=== PATIENT | female | born 1945 | race Caucasian/White ===

== ENCOUNTER 2018-02-14 00:19 | Inpatient (IN) | payer MEDICARE, OTHER ==
[2018-02-14] MEDS ORDERED: DIPH/PERTUSS(ACELL)/TETANUS VAC/PF 0.5 ML SYR (>=10YO) IM ONE (00:36)
[2018-02-14] MEDS ORDERED: CEFAZOLIN 2 GM/D5W RTU 2 GM/50 ML RTUPB IV ONE (00:36)
[2018-02-14] MEDS ORDERED: GENTAMICIN SULFATE INJ 80 MG/2 ML VIAL IV ONE (00:36)
[2018-02-14] MEDS ORDERED: ONDANSETRON HCL INJ/PF 4 MG/2 ML SDV IV ONE (00:39)
--- NOTE | 2018-02-14 01:41 | ER Document Report ---
ED General - General Chief Complaint: Ankle Injury Stated Complaint: RIGHT ANKLE INJURY Time Seen by Provider: 02/14/18 00:26 Notes: Patient is a 72-year-old female with a past medical history significant for COPD on nocturnal O2 presents to the emergency department after syncopal episode earlier this evening with a right ankle injury. Patient states that she was outside her son's house speaking to her neighbor when she felt lightheaded and passed out. She denies any chest pain. She states that she intermittently has shortness of breath and cough due to her COPD. Does have wounds on the medial aspect of the right ankle. She states that she has equal sensation in both toes and is able to wiggle her toes. She states that her ankle hurts with any movement. Unaware of tetanus status Is here from out of town lives in [place] primarily - Related Data Allergies/Adverse Reactions: morphine Allergy (Verified 02/14/18 00:57) Hives Past Medical History - Social History Smoking Status: Current Every Day Smoker Family History: Reviewed & Not Pertinent Patient has suicidal ideation: No Patient has homicidal ideation: No Renal/ Medical History: Denies: Hx Peritoneal Dialysis Review of Systems - Review of Systems Constitutional: No symptoms reported. denies: Chills, Fever EENT: No symptoms reported. denies: Blurred vision, Double vision, Vertigo Cardiovascular: Lightheaded. denies: Chest pain, Palpitations, Heart racing Respiratory: See HPI Gastrointestinal: No symptoms reported Genitourinary: No symptoms reported Musculoskeletal: See HPI Neurological/Psychological: See HPI -: Yes All other systems reviewed and negative Physical Exam - Vital signs Vitals: Temp Pulse Resp BP Pulse Ox 97.6 F 81 18 139/66 H 88 L 02/14/18 00:28 02/14/18 00:28 02/14/18 00:28 02/14/18 00:28 02/14/18 00:28 - Notes Notes: PHYSICAL EXAM GENERAL: Alert, interacts well. HEAD: Normocephalic, atraumatic. EYES: Pupils equal, round, and reactive to light. Extraocular movements intact. ENT: Oral mucosa moist, tongue midline. NECK: Full range of motion. Supple. Trachea midline. LUNGS: Bilateral wheezes without rales, or rhonchi. No respiratory distress. HEART: Regular rate and rhythm. No murmurs, gallops, or rubs. ABDOMEN: Soft, nondistended, nontender. No guarding, rebound, or rigidity.. Bowel sounds present in all 4 quadrants. EXTREMITIES: Moves all 4 extremities spontaneously. No edema, radial and dorsalis pedis pulses 2/4 bilaterally. No cyanosis. NEUROLOGICAL: Alert and oriented x4. Normal speech. Face symmetric. Tongue protrudes midline. Extraocular motions intact. Pupils are 2 mm and equally reactive. Normal speech. 5 out of 5 strength in both the distal and proximal upper and left lower extremity. Sensation is grossly intact throughout. Finger to nose testing normal. Pronator drift normal. PSYCH: Normal affect, normal mood. SKIN: Warm, dry, normal turgor. Open laceration of the medial ankle with fat protruding without active bleeding Course - Re-evaluation Re-evalutation: 02/14/18 01:00 Patient is a 72-year-old female is hemodynamically stable, no acute distress afebrile. Syncopal event without any evidence of cardiac arrhythmia likely related to hypoxia given her initial presenting saturations 87% on room air. Improved quickly was placed on 2 L nasal cannula. Evidence of type III open fracture of the right ankle with x-ray evidence of talar dislocation of the tibia with fracture of the fibula. Tetanus status updated and patient initiated on antibiotics. Patient declined pain medication on multiple accounts. Dr. Vanegas consulted for emergent evaluation and possible direct OR. 02/14/18 01:35 Dr. Vanegas at the bedside to evaluate the injury and imaging and recommending emergent OR status. Troponin negative. Consent obtained and patient agrees with plan. - Vital Signs Vital signs: Temp Pulse Resp BP Pulse Ox 94.7 F L 78 16 127/51 H 96 02/14/18 07:00 02/14/18 07:00 02/14/18 07:00 02/14/18 07:00 02/14/18 07:00 - Laboratory Result Diagrams: 02/14/18 01:20 02/14/18 01:20 Laboratory results interpreted by me: 02/14/18 02/14/18 01:20 01:20 WBC 12.0 H RBC 6.46 H Hgb 16.7 H Hct 50.9 H MCV 79 L MCH 25.8 L RDW 19.1 H Seg Neutrophils % 82.8 H Lymphocytes % 7.1 L Absolute Neutrophils 9.9 H Sodium 133.4 L Chloride 94 L Carbon Dioxide 34 H Glucose 125 H - Diagnostic Test Radiology reviewed: Image reviewed, Reports reviewed - EKG Interpretation by Me EKG shows normal: Sinus rhythm Rate: Normal Rhythm: NSR When compared to previous EKG there are: No significant change Discharge - Discharge Clinical Impression: Syncope and collapse Open ankle fracture Qualifiers: Encounter type: initial encounter Open fracture type: open type III Laterality : right Qualified Code(s): S82.891C - Other fracture of right lower leg, initial encounter for open fracture type IIIA, IIIB, or IIIC Condition: Stable Disposition: ADMITTED INPATIENT Admitting Provider: [facility]
[2018-02-14 01:48] LABS: ABSOLUTE EOSINOPHILS # (AUTO) 0.1 10^3/uL (0.0-0.6); ABSOLUTE LYMPHOCYTES (AUTO) 0.9 10^3/uL (0.5-4.7); ABSOLUTE MONOCYTES (AUTO) 1.1 10^3/uL (0.1-1.4); ABSOLUTE NEUT (AUTO) 9.9 10^3/uL (1.7-8.2); BASOPHILS % (AUTO) 0.2 % (0-2); EOSINOPHILS % (AUTO) 0.4 % (0-6); HEMATOCRIT 50.9 % (36.0-47.0); HEMOGLOBIN 16.7 g/dL (12.0-15.5); LYMPHOCYTES % (AUTO) 7.1 % (13-45); MEAN CORPUSCULAR HEMOGLOBIN 25.8 pg (27.0-33.4); MEAN CORPUSCULAR HGB CONC 32.8 g/dL (32.0-36.0); MEAN CORPUSCULAR VOLUME 79 fl (80-97); MONOCYTES % (AUTO) 9.5 % (3-13); PLATELET COUNT 156 10^3/uL (150-450); RED BLOOD COUNT 6.46 10^6/uL (3.72-5.28); RED CELL DISTRIBUTION WIDTH 19.1 % (11.5-14.0); SEGMENTED NEUTROPHILS % (AUTO) 82.8 % (42-78); TOTAL CELLS COUNTED % (AUTO) 100 %
[2018-02-14] MEDS ORDERED: ALBUTEROL SULFATE 0.083% NEB 2.5 MG/3 ML AMPUL NEB ONE (01:51)
--- NOTE | 2018-02-14 02:11 | RADIOLOGY REPORT (SQ) ---
EXAM DESCRIPTION: ANKLE RIGHT COMPLETE CLINICAL HISTORY: 72 years, Female, fall with injury COMPARISON: None. NUMBER OF VIEWS: 3 LIMITATIONS: None. FINDINGS: Comminuted fracture dislocation of the right ankle includes complete oblique comminuted fracture of the distal diaphysis of the right fibula, and greater than 80% lateral subluxation of the talotibial joint. Moderate calcaneal enthesophytes. IMPRESSION: Fracture dislocation of the right ankle.
--- NOTE | 2018-02-14 02:13 | RADIOLOGY REPORT (SQ) ---
EXAM DESCRIPTION: CHEST SINGLE VIEW CLINICAL HISTORY: 72 years Female, chest burning COMPARISON: None. NUMBER OF VIEWS/TECHNIQUE: 1/AP LIMITATIONS: None. FINDINGS: Prominent interstitium. Normal cardiac silhouette. Intact bony thorax. IMPRESSION: No acute cardiopulmonary findings.
[2018-02-14 02:17] LABS: ALANINE AMINOTRANSFERASE 22 U/L (9-52); ALKALINE PHOSPHATASE 61 U/L (38-126); ANION GAP 5 (5-19); ASPARTATE AMINO TRANSFERASE 16 U/L (14-36); BILIRUBIN,DIRECT 0.3 mg/dL (0.0-0.4); BILIRUBIN,TOTAL 0.3 mg/dL (0.2-1.3); BLOOD UREA NITROGEN 9 mg/dL (7-20); CARBON DIOXIDE 34 mmol/L (22-30); CHLORIDE 94 mmol/L (98-107); CREATINE KINASE 50 U/L (30-135); GLUCOSE 125 mg/dL (75-110); POTASSIUM 4.6 mmol/L (3.6-5.0); SODIUM 133.4 mmol/L (137-145); TOTAL PROTEIN 6.7 g/dL (6.3-8.2)
[2018-02-14] MEDS ORDERED: HYDROMORPHONE HCL INJ/PF 2 MG/ML AMPULE IV ONE (02:17)
[2018-02-14] MEDS ORDERED: FENTANYL CITRATE INJ/PF 100 MCG/2 ML AMPUL IV ONE (02:20)
[2018-02-14] MEDS: RINGERS SOLUTION,LACTATED 1,000 ML IV PRN ×2 (02:27→20:52)
--- NOTE | 2018-02-14 02:35 | PDOC H&P ---
History of Present Illness Patient complains of: Right Ankle Injury History of Present Illness: RACHEL SALES is a 72 year old female who is from out of town and was visiting. According to the patient she has long-standing history of COPD and with standing and ultimately became lightheaded, fell and blacked out. Patient was brought to the emergency room via EMS was found to have open fracture dislocation of her ankle. Patient denies gross contamination to the wound and was originally wearing a sock. Does have numbness and tingling along the toes. States pain is worse with any motion. She has received antibiotics in the emergency room. Past Medical History Cardiac Medical History: Reports: Hyperlipidema Pulmonary Medical History: Reports: Chronic Obstructive Pulmonary Disease (COPD) Past Surgical History Past Surgical History: Reports: Section, Cholecystectomy, Herniorrhaphy , Hysterectomy Social History Smoking Status: Current Every Day Smoker Family History Parental Family History Reviewed: No Children Family History Reviewed: No Sibling(s) Family History Reviewed.: No Medication/Allergy Allergies/Adverse Reactions: morphine Allergy (Verified 02/14/18 00:57) Hives Review of Systems Constitutional: ABSENT: chills, fever(s), headache(s), weight gain, weight loss Eyes: ABSENT: visual disturbances Ears: ABSENT: hearing changes Cardiovascular: ABSENT: chest pain, dyspnea on exertion, edema, orthropnea, palpitations Respiratory: PRESENT: dyspnea. ABSENT: cough, hemoptysis Gastrointestinal: ABSENT: abdominal pain, constipation, diarrhea, hematemesis, hematochezia, nausea, vomiting Genitourinary: ABSENT: dysuria, hematuria Musculoskeletal: PRESENT: as per HPI Integumentary: PRESENT: as per HPI, wounds. ABSENT: rash Neurological: ABSENT: abnormal gait, abnormal speech, confusion, dizziness, focal weakness, syncope Psychiatric: ABSENT: anxiety, depression, homidical ideation, suicidal ideation Endocrine: ABSENT: cold intolerance, heat intolerance, menstrual abnormalities, polydipsia, polyuria Hematologic/Lymphatic: ABSENT: easy bleeding, easy bruising, lymphadenopathy Physical Exam Vital Signs: Temp Pulse Resp BP Pulse Ox 97.6 F 81 19 139/66 H 95 02/14/18 00:28 02/14/18 00:28 02/14/18 01:08 02/14/18 00:28 02/14/18 01:30 General appearance: PRESENT: no acute distress, cooperative, well-developed, well-nourished Head exam: PRESENT: atraumatic, normocephalic Eye exam: PRESENT: conjunctiva pink, EOMI, PERRLA. ABSENT: scleral icterus Ear exam: PRESENT: normal external ear exam Mouth exam: PRESENT: moist, tongue midline Neck exam: PRESENT: full ROM. ABSENT: carotid bruit, JVD, lymphadenopathy, thyromegaly Respiratory exam: PRESENT: other - Patient currently on O2. Cardiovascular exam: PRESENT: RRR. ABSENT: diastolic murmur, rubs, systolic murmur Pulses: PRESENT: other - Palpable but weak dorsalis pedis pulse on the right Vascular exam: PRESENT: normal capillary refill GI/Abdominal exam: PRESENT: normal bowel sounds, soft. ABSENT: distended, guarding, mass, organolmegaly, rebound, tenderness Rectal exam: PRESENT: deferred Musculoskeletal exam: PRESENT: other - Right ankle: 10 cm x 3 cm open wound medially with exposed tibia. No evidence of gross contamination. Intact flexion extension of the toes. Dorsalis pedis pulse 1+ and palpable. Cap refill approximately 4 seconds. Altered sensation on the dorsum of the foot. Neurological exam: PRESENT: alert, awake, oriented to person, oriented to place , oriented to time, oriented to situation, CN II-XII grossly intact. ABSENT: motor sensory deficit Psychiatric exam: PRESENT: appropriate affect, normal mood. ABSENT: homicidal ideation, suicidal ideation Skin exam: PRESENT: dry, intact, warm. ABSENT: cyanosis, rash Results Status: Image reviewed by me - I have reviewed patient's radiographs which demonstrate right ankle fracture dislocation with oblique fracture of the distal fibula with involvement of the tibial plafond Assessment & Plan - Diagnosis (1) Open right ankle fracture Qualifiers: Encounter type: initial encounter Open fracture type: open type III Qualified Code(s): S82.891C - Other fracture of right lower leg, initial encounter for open fracture type IIIA, IIIB, or IIIC Is this a current diagnosis for this admission?: Yes Plan: Patient sustained a high-grade fracture dislocation of her right ankle. Given the significant soft tissue compromise and open nature of the fracture I have recommended emergent operative intervention. I have discussed with the patient outcomes, prognosis and expectations given the severity of patient's injury amputation remains a possibility in the future. At this point however we will proceed with operative intervention which includes irrigation and debridement of the right ankle with placement of external fixator. Patient understands risks and benefits of the surgical procedure including anesthesia risks but given the urgency of the situation we will proceed with operative intervention this evening. Other risks including neurovascular risk, infection, postoperative pain, postoperative stiffness, posttraumatic arthritis patient verbalized understanding consented for the procedure. We also discussed the negative effects of smoking/tobacco on wound healing which would increase the patient's risk of nonunion, amputation also discussed negative effects on overall health.
[2018-02-14] MEDS ORDERED: ONDANSETRON HCL INJ/PF 4 MG/2 ML SDV ONE ×2 (02:39→04:27)
[2018-02-14] MEDS ORDERED: EPHEDRINE SULFATE INJ 50 MG/1 ML AMPULE ONE (02:39)
[2018-02-14] MEDS ORDERED: FENTANYL CITRATE INJ/PF 100 MCG/2 ML AMPUL ONE ×2 (02:39)
[2018-02-14] MEDS ORDERED: MIDAZOLAM 2 MG/2 ML INJ ONE (02:40)
[2018-02-14] MEDS ORDERED: PROPOFOL INJ 200 MG/20 ML VIAL IV ONE (02:40)
[2018-02-14 03:06] LABS: TROPONIN I < 0.012 ng/mL
[2018-02-14] MEDS ORDERED: ONDANSETRON HCL INJ/PF 4 MG/2 ML SDV IV PRN (03:18)
[2018-02-14] MEDS ORDERED: DIPHENHYDRAMINE HCL 50 MG/ML VIAL IV PRN (03:18)
[2018-02-14] MEDS ORDERED: FENTANYL CITRATE INJ/PF 100 MCG/2 ML AMPUL IV PRN ×3 (03:18)
--- NOTE | 2018-02-14 04:44 | Operative Report ---
Operative Report DATE OF SURGERY: 02/14/18 PREOPERATIVE DIAGNOSIS: Grade III open right ankle/lateral malleolus fracture dislocation POSTOPERATIVE DIAGNOSIS: Grade III fracture dislocation right ankle OPERATION: Irrigation and debridement right ankle open fracture dislocation. Placement of external fixator right ankle open fracture dislocation SURGEON: ANJU MARTINS ANESTHESIA: GA COMPLICATIONS: None ESTIMATED BLOOD LOSS: Minimal INTRAOPERATIVE FINDINGS: 8 cm open medial wound with exposed bone no gross contamination PROCEDURE: Indication for above procedure: 72-year-old female who sustained a right open fracture dislocation of her ankle. Patient was subsequently seen and evaluated in emergency room given the severity of her open wound decision was made to proceed with operative intervention. Risks and benefits were explained to the patient who verbalized understanding consented for the procedure. Procedure In Detail: Patient was seen and evaluated in the preoperative holding area. The right lower extremity was initialized and marked. Patient received 2g of Ancef IV and gentamicin for bacterial prophylaxis in the emergency room. Patient was taken back to the operative room where transferred to the operative table and placed under general anesthesia. Once they were adequately anesthetized a nonsterile tourniquet was placed on the lower extremity. A surgical team debriefing was performed ensuring all instrumentation was available, the surgical procedure was discussed with possible concerns reviewed. The lower r extremity was prepped with Betadine and draped in a sterile fashion. A timeout was done identifying correct patient, procedure and extremity everyone in attendance agree with this and verbalized no concerns. The extremity was elevated and the tourniquet was inflated to 300 mmHg. Exploration of the patient's 8 cm wound demonstrated no evidence of gross contamination there was disruption of the deltoid ligament with a small avulsion fracture. Any nonviable tissue including bone and skin was excised from the open fracture. The wound was then copiously irrigated with 3 L of normal saline. Once irrigation was complete the ankle was successfully reduced back to its near anatomic position. I then proceeded with placement of the external fixator. Under C arm fluoroscopy a small stab incision was made at the assisted point between the medial malleolus and posterior calcaneus and the Steinmann pin for the Dhillon external fixator was placed. C-arm was utilized to confirm adequate placement of the pin within the posterior calcaneus. Once this was confirmed I turned my attention to placement of 2 proximal pins within the tibia. A stab incision was made blunt dissection performed in the anterior medial aspect of the tibia was exposed with the use of a guide it was initially predrilled and 2 Steinmann pins were placed. C-arm fluoroscopy was obtained confirming appropriate placement of the pins with bicortical fixation on AP and lateral projection. Under C-arm fluoroscopy gentle traction was performed successfully maintaining reduction of the tibial plafond it is near anatomic position. There was no evidence of subluxation. The clamps were then tightly secured. There is no evidence of medial wound necrosis thus this was loosely closed with interrupted 3-0 nylon suture. Pin sites were dressed with Xeroform and Kerlix. A kickstand was placed to avoid posterior heel breakdown/necrosis. Tourniquet was then deflated. Dorsalis pedis pulse was dopplered and palpable. Patient had good peripheral perfusion with cap refill less than 2 seconds. Sponge counts, instrument counts, needle counts counts were correct. Patient was then awoken from anesthesia. Transferred from the operating room table to the operating room stretcher. There was no intraoperative complications patient tolerated procedure well stable to PACU. Postoperative plan: Patient will maintain nonweightbearing on her right lower extremity. Will begin pin care in 48 hours. Will be continued on Ancef IV for 72 hours. Patient will be started on Xarelto for DVT prophylaxis. Anticipate return to the operating room within 48-72 hours for definitive fixation of the lateral malleolus.
[2018-02-14] MEDS ORDERED: CEFAZOLIN 2 GM/D5W RTU 2 GM/50 ML RTUPB IV SCH (06:00)
--- NOTE | 2018-02-14 07:46 | RADIOLOGY REPORT (SQ) ---
EXAM DESCRIPTION: NO CHG FLUORO; ANKLE RIGHT AP/LATERAL COMPLETED DATE/TIME: 02/14/2018 4:38 am REASON FOR STUDY: EXTERNAL FIXATION RT ANKLE COMPARISON: None. FLUOROSCOPY TIME: 1.2 minutes 5 images saved to PACS. TECHNIQUE: Intra-operative images acquired during surgical procedure to evaluate progress. NUMBER OF IMAGES: None LIMITATIONS: None. FINDINGS: Intraoperative fixation of ankle fracture dislocation. Limited imaging presumably for ext ernal fixator. IMPRESSION: IMAGE(S) OBTAINED DURING PROCEDURE. COMMENT: Quality ID 145: Final reports for procedures using fluoroscopy that document radiation exp osure indices, or exposure time and number of fluorographic images (if radiation exposure indices are not available) Please consult full operative report of the attending physician for description of the procedure. TECHNICAL DOCUMENTATION: JOB ID: [id number] [employer]- All Rights Reserved Reading location - IP/workstation name: [email or web address]
--- NOTE | 2018-02-14 07:46 | RADIOLOGY REPORT (SQ) ---
EXAM DESCRIPTION: NO CHG FLUORO; ANKLE RIGHT AP/LATERAL COMPLETED DATE/TIME: 02/14/2018 4:38 am REASON FOR STUDY: EXTERNAL FIXATION RT ANKLE COMPARISON: None. FLUOROSCOPY TIME: 1.2 minutes 5 images saved to PACS. TECHNIQUE: Intra-operative images acquired during surgical procedure to evaluate progress. NUMBER OF IMAGES: None LIMITATIONS: None. FINDINGS: Intraoperative fixation of ankle fracture dislocation. Limited imaging presumably for ext ernal fixator. IMPRESSION: IMAGE(S) OBTAINED DURING PROCEDURE. COMMENT: Quality ID [id number]: Final reports for procedures using fluoroscopy that document radiation exp osure indices, or exposure time and number of fluorographic images (if radiation exposure indices are not available) Please consult full operative report of the attending physician for description of the procedure. TECHNICAL DOCUMENTATION: JOB ID: [id number] [employer]- All Rights Reserved Reading location - IP/workstation name: [email or web address]
[2018-02-14] MEDS: FENTANYL CITRATE INJ/PF 100 MCG/2 ML AMPUL IV PRN ×3 (08:05→20:48)
[2018-02-14] MEDS: CEFAZOLIN 2 GM/D5W RTU 2 GM/50 ML RTUPB IV SCH ×3 (09:28→20:49)
--- NOTE | 2018-02-14 09:34 | PDOC PROGRESS REPORT ---
Subjective Progress Note for:: 02/14/18 Subjective:: Patient seen and evaluated this morning. States pain is controlled. Therapy saw her today after which she began having bleeding from the wound. Denies chest pain shortness of breath. Reason For Visit: RIGHT ANKLE OPEN FRACTURE, DISLOCATION Physical Exam Vital Signs: Temp Pulse Resp BP Pulse Ox 98.2 F 90 18 118/48 L 91 L 02/14/18 09:00 02/14/18 09:00 02/14/18 09:00 02/14/18 09:00 02/14/18 09:00 Intake & Output 02/13/18 02/14/18 02/15/18 06:59 06:59 06:59 Intake Total 1150 Output Total 5 Balance 1145 Weight 68.039 kg Musculoskeletal exam: PRESENT: other - Right lower extremity: External fixator intact. Bloody drainage from the medial wound. Cap refill less than 2 seconds. Dorsalis pedis pulse 2+. Intact flexion/extension of the toes. Results Laboratory Results: 02/14/18 06:36 Troponin I < 0.012 Impressions: Fluoroscopy 02/14/18 00:00 IMPRESSION: IMAGE(S) OBTAINED DURING PROCEDURE. Ankle X-Ray 02/14/18 00:21 IMPRESSION: Fracture dislocation of the right ankle. Chest X-Ray 02/14/18 00:35 IMPRESSION: No acute cardiopulmonary findings. Assessment & Plan - Diagnosis (1) Open right ankle fracture Qualifiers: Encounter type: initial encounter Open fracture type: open type III Qualified Code(s): S82.891C - Other fracture of right lower leg, initial encounter for open fracture type IIIA, IIIB, or IIIC Is this a current diagnosis for this admission?: Yes Plan: Status post external fixation right ankle open fracture dislocation #1 nonweightbearing right lower extremity continue aggressive elevation #2 pain control #3 Ancef IV for bacterial prophylaxis. #4 patient will require repeat operative intervention for definitive fixation of her distal fibula fracture if swelling permits within the next 48-72 hours.
[2018-02-14 10:13] LABS: ABSOLUTE BASOPHILS # (AUTO) 0.1 10^3/uL (0.0-0.2); ABSOLUTE MONOCYTES (AUTO) 1.6 10^3/uL (0.1-1.4); ABSOLUTE NEUT (AUTO) 13.7 10^3/uL (1.7-8.2); BASOPHILS % (AUTO) 0.6 % (0-2); EOSINOPHILS % (AUTO) 0.1 % (0-6); LYMPHOCYTES % (AUTO) 6.3 % (13-45); MEAN CORPUSCULAR HEMOGLOBIN 25.5 pg (27.0-33.4); MEAN CORPUSCULAR HGB CONC 32.2 g/dL (32.0-36.0); MEAN CORPUSCULAR VOLUME 79 fl (80-97); MONOCYTES % (AUTO) 9.5 % (3-13); PLATELET COUNT 146 10^3/uL (150-450); RED BLOOD COUNT 5.69 10^6/uL (3.72-5.28); RED CELL DISTRIBUTION WIDTH 19.1 % (11.5-14.0); SEGMENTED NEUTROPHILS % (AUTO) 83.5 % (42-78); TOTAL CELLS COUNTED % (AUTO) 100 %; WHITE BLOOD COUNT 16.4 10^3/uL (4.0-10.5)
[2018-02-14 10:14] LABS: HEMOGLOBIN 14.5 g/dL (12.0-15.5)
[2018-02-14] MEDS: OXYCODONE-ACETAMINOPHEN 5-325 MG TABLET PO PRN ×2 (10:20→17:16)
[2018-02-14 10:28] LABS: ALANINE AMINOTRANSFERASE 19 U/L (9-52); ALBUMIN 3.4 g/dL (3.5-5.0); ALKALINE PHOSPHATASE 53 U/L (38-126); ANION GAP 8 (5-19); ASPARTATE AMINO TRANSFERASE 16 U/L (14-36); BILIRUBIN,DIRECT 0.1 mg/dL (0.0-0.4); BILIRUBIN,TOTAL 0.2 mg/dL (0.2-1.3); BLOOD UREA NITROGEN 10 mg/dL (7-20); CALCIUM 8.4 mg/dL (8.4-10.2); CARBON DIOXIDE 30 mmol/L (22-30); CHLORIDE 93 mmol/L (98-107); GLUCOSE 101 mg/dL (75-110); POTASSIUM 4.2 mmol/L (3.6-5.0); SODIUM 130.8 mmol/L (137-145); TOTAL PROTEIN 5.6 g/dL (6.3-8.2)
--- NOTE | 2018-02-14 10:28 | EKG REPORT ---
SEVERITY:- ABNORMAL ECG - SINUS RHYTHM BIATRIAL ABNORMALITIES BORDERLINE RIGHT AXIS DEVIATION BORDERLINE INFERIOR Q WAVES : Confirmed by: Arya Love MD 14-Feb-2018 10:27:36
[2018-02-14] MEDS ORDERED: LEVALBUTEROL HCL NEB 1.25 MG/3 ML AMPUL NEB PRN (11:21)
[2018-02-14] MEDS ORDERED: LEVALBUTEROL HCL NEB 0.63 MG/3 ML AMPUL NEB PRN (11:26)
--- NOTE | 2018-02-14 11:40 | PDOC CONSULTATION ---
Consultation Consult Date: 02/14/18 Attending physician:: ANJU MARITNS Consult reason:: Syncope and collapse History of Present Illness Admission Date/PCP: 02/14/18 02:13 History of Present Illness: RACHEL SALES is a 72 year old female with past medical history of COPD. She presented to the emergency room after she had an episode of shortness of breath lightheadedness and fall after which she sustained a right open ankle fracture with dislocation. The patient was taken to the OR by Dr. Terence Martins and pinning was performed. Plan is for repeat surgery in 48-72 hours for definitive fixation of the lateral malleolus. The medical service was consulted for management of her COPD. She smokes a pack per day and is on 3L of O2 by [facility] only. Denies any recent illness Home meds: Spiriva daily, Proventil prn- is what she can remember She plans to ask someone to bring her med list from home. States she is not on any Aspirin or BP lowering meds. The patient admits to exertional dyspnea and chest pain. No chest pain at rest or at present. She had a stress test many years ago. Denies any recent fever chills illness nausea vomiting cough or diarrhea peer She reports that she was standing leaning against a wall when she suddenly felt lightheaded and fell. Denies any chest pain palpitations syncope or loss of consciousness. Past Medical History Cardiac Medical History: Reports: Hyperlipidema Pulmonary Medical History: Reports: Chronic Obstructive Pulmonary Disease (COPD) Past Surgical History Past Surgical History: Reports: Section, Cholecystectomy, Herniorrhaphy , Hysterectomy Social History Smoking Status: Current Every Day Smoker Frequency of Alcohol Use: Rare - Advance Directive Resuscitation Status: Full Code Family History Family History: CAD, Hypertension Parental Family History Reviewed: Yes Children Family History Reviewed: Yes Sibling(s) Family History Reviewed.: Yes Medication/Allergy Allergies/Adverse Reactions: morphine Allergy (Verified 02/14/18 00:57) Hives Review of Systems Constitutional: ABSENT: fever(s), weakness Eyes: ABSENT: visual disturbances Ears: ABSENT: hearing changes Nose, Mouth, and Throat: ABSENT: sore throat Cardiovascular: ABSENT: orthropnea, palpitations Gastrointestinal: ABSENT: abdominal pain, heartburn, nausea, vomiting Genitourinary: ABSENT: dysuria Musculoskeletal: PRESENT: joint swelling Neurological: ABSENT: convulsions, focal weakness, lack of coordination, tingling Physical Exam Vital Signs: Temp Pulse Resp BP Pulse Ox 94.7 F L 78 16 127/51 H 96 02/14/18 07:00 02/14/18 07:00 02/14/18 07:00 02/14/18 07:00 02/14/18 07:00 Intake & Output 02/13/18 02/14/18 02/15/18 06:59 06:59 06:59 Intake Total 1150 Output Total 5 Balance 1145 Weight 68.039 kg General appearance: PRESENT: no acute distress Eye exam: PRESENT: EOMI, PERRLA. ABSENT: scleral icterus Ear exam: PRESENT: normal external ear exam Mouth exam: PRESENT: moist, neck supple Neck exam: PRESENT: full ROM. ABSENT: carotid bruit, tenderness, thyromegaly, tracheal deviation Respiratory exam: PRESENT: rhonchi, symmetrical, unlabored Cardiovascular exam: PRESENT: RRR - R ankle, pinned and dressing in place GI/Abdominal exam: PRESENT: normal bowel sounds, soft. ABSENT: tenderness Rectal exam: PRESENT: deferred Neurological exam: PRESENT: awake, oriented to person, oriented to place Psychiatric exam: PRESENT: normal mood Results Impressions: Ankle X-Ray 02/14/18 00:21 IMPRESSION: Fracture dislocation of the right ankle. Chest X-Ray 02/14/18 00:35 IMPRESSION: No acute cardiopulmonary findings. Assessment & Plan - Diagnosis (1) Fall Qualifiers: Encounter type: sequela Qualified Code(s): W19.XXXS - Unspecified fall, sequela Is this a current diagnosis for this admission?: Yes (2) Pre-syncope Is this a current diagnosis for this admission?: Yes Plan: Check Echo. Will need cardiology pre op clearance given smoking history and report of exertional chest pain and dyspnea. cardiology consult requested. (3) COPD (chronic obstructive pulmonary disease) Qualifiers: COPD type: chronic bronchitis Is this a current diagnosis for this admission?: Yes Plan: Inhalers and nebs, supplemental oxygen (4) Tobacco abuse Is this a current diagnosis for this admission?: Yes (5) Open right ankle fracture Qualifiers: Encounter type: initial encounter Open fracture type: open type III Qualified Code(s): S82.891C - Other fracture of right lower leg, initial encounter for open fracture type IIIA, IIIB, or IIIC Is this a current diagnosis for this admission?: Yes Plan: Management per Orthopedic surgery. - Time Time Spent: 50 to 70 Minutes
[2018-02-14] MEDS ORDERED: DOCUSATE SODIUM 100 MG CAPSULE PO ONE (12:00)
[2018-02-14] MEDS ORDERED: SENNOSIDES/DOCUSATE 8.6-50 MG 1 EACH TABLET PO ONE (12:30)
[2018-02-14] MEDS ORDERED: TIOTROPIUM BROMIDE DPI 5 CAP/KIT (18 MCG/CAP) IH ONE (12:30)
--- NOTE | 2018-02-14 13:07 | PDOC CONSULTATION ---
Consultation Consult Date: 02/14/18 Attending physician:: MARIELOS JIMENES Consult reason:: Chest pain and near-syncope History of Present Illness Admission Date/PCP: 02/14/18 02:13 Patient complains of: Fracture right ankle History of Present Illness: RACHEL SALES is a 72 year old female with past medical history of COPD. She presented to the emergency room after she had an episode of shortness of breath lightheadedness and fall after which she sustained a right open ankle fracture with dislocation. The patient was taken to the OR by Dr. Terence Vanegas and pinning was performed. Plan is for repeat surgery in 48-72 hours for definitive fixation of the lateral malleolus. The medical service was consulted for management of her COPD. She smokes a pack per day and is on 3L of O2 by [facility] only. Denies any recent illness Home meds: Spiriva daily, Proventil prn- is what she can remember She plans to ask someone to bring her med list from home. States she is not on any Aspirin or BP lowering meds. The patient admits to exertional dyspnea and chest pain. No chest pain at rest or at present. She had a stress test many years ago. Denies any recent fever chills illness nausea vomiting cough or diarrhea peer She reports that she was standing leaning against a wall when she suddenly felt lightheaded and fell. Denies any chest pain palpitations syncope or loss of consciousness. This history was reviewed and confirmed. Patient claims that she did have burning sensation in her chest, prior to the near syncopal spell. So far EKGs and cardiac enzymes 2 has been negative. I am told that patient needs fairly urgent surgery which is scheduled for Friday. Past Medical History Cardiac Medical History: Reports: Hyperlipidema Pulmonary Medical History: Reports: Chronic Obstructive Pulmonary Disease (COPD) Past Surgical History Past Surgical History: Reports: Section, Cholecystectomy, Herniorrhaphy , Hysterectomy Social History Information Source: Patient Smoking Status: Current Every Day Smoker Frequency of Alcohol Use: Rare - Advance Directive Resuscitation Status: Full Code Surrogate healthcare decision maker:: Patient's son is the surrogate decision-maker Family History Family History: CAD, Hypertension Parental Family History Reviewed: Yes Children Family History Reviewed: Yes Sibling(s) Family History Reviewed.: Yes Medication/Allergy Home Medications: Albuterol Sulfate [Proair HFA] 2 puff IH QID 02/14/18 Alprazolam [Xanax 0.5 mg Tablet] 0.5 mg PO BIDP PRN 02/14/18 Diclofenac Sodium [Voltaren] 1 applic TOP QID 02/14/18 Esomeprazole Magnesium [Nexium] 40 mg PO BID 02/14/18 Estradiol [Estrace] 1 mg PO DAILY 02/14/18 Hydrocodone Bit/Acetaminophen [Hydrocodon-Acetaminophn 10-325] 1 tab PO BIDP PRN 02/14/18 Ondansetron HCl [Zofran 8 mg Tablet] 8 mg PO DAILYP PRN 02/14/18 Oxybutynin Chloride [Oxybutynin Chloride ER] 5 mg PO DAILY 02/14/18 Pregabalin [Lyrica] 300 mg PO Q12 02/14/18 Promethazine HCl [Phenergan 25 mg Tablet] 25 mg PO Q6HP PRN 02/14/18 Simvastatin [Zocor 40 mg Tablet] 40 mg PO QHS 02/14/18 Tiotropium [place] [Spiriva Handihaler 18 mcg/dose (30 Dose)] 1 cap IH DAILY Zafirlukast [Accolate 20 mg Tablet] 20 mg PO Q12 02/14/18 Cephalexin Monohydrate [Keflex 500 mg Capsule] 500 mg PO QID #28 capsule Oxycodone HCl/Acetaminophen [Percocet 5-325 mg Tablet] 1 - 2 tab PO ASDIR PRN # 50 tablet 02/17/18 Rivaroxaban [Xarelto 10 mg Tablet] 10 mg PO DAILY PRN #18 tablet 02/17/18 Allergies/Adverse Reactions: morphine Allergy (Verified 02/14/18 00:57) Hives Review of Systems Review of Systems: Please see history of present illness and past medical history as wall. Constitutional: No fever or chills reported. Head : No recent chronic headaches, recent head injury. Eyes: No recent eye pain, diplopia, redness, discharge, acute visual changes. Ears: No recent chronic ear pain, acute hearing loss, ear discharge. Oral cavity: No recent ulcerations, bleeding, oral cavity discomfort. Neck: No recent acute neck pain reported. Hematologic: No recent easy bruising or bleeding or hematologic malignancy reported. Lymphatic: No recent lymphatic malignancy, chronic lymphadenopathy reported yet Cardiovascular system review: See history of present illness. Respiratory system review: No recent chronic cough, hemoptysis, blood clots in the lungs reported. Mild Shortness of breath on exertion. Gastrointestinal system review: Negative for any recent acute or chronic abdominal pain, hematemesis, melena, recent change in bowel habits. Genitourinary system review: No recent acute or chronic hematuria, flank pain, UTI etc. reported. Skin system review: Negative for any recent abnormal bruising, no rash, no pruritus reported. Neurologic: No prior history of strokes, mini strokes, seizure disorder. Psychologic: No history of major psychosis or major depression reported. Musculoskeletal: Minor aches and pains reported. No acute joint swelling reported. Endocrine: No recent polyuria, polydipsia, recent heat or cold intolerance. Physical Exam Vital Signs: Temp Pulse Resp BP Pulse Ox 98 F 98 22 H 112/45 L 98 02/14/18 10:00 02/14/18 11:52 02/14/18 11:52 02/14/18 10:00 02/14/18 11:52 Intake & Output 02/13/18 02/14/18 02/15/18 06:59 06:59 06:59 Intake Total 1150 Output Total 5 Balance 1145 Weight 68.039 kg Exam: GENERAL: well-nourished and in no acute distress. Alert and oriented x3 HEAD: Atraumatic, normocephalic. EYES: Pupils equal round and reactive to light, extraocular movements intact, sclera anicteric, conjunctiva are normal. ENT: TMs normal, nares patent, oropharynx clear without exudates. Moist mucous membranes. No oral ulcerations or bleeding gums noted NECK: supple without lymphadenopathy. Trachea is central. No cervical or axillary lymphadenopathy noted. Carotids are 2+, JVD WNL LUNGS: Respiration seems nonlabored, no significant accessory muscle action noted. Breath sounds clear to auscultation bilaterally and equal noted. No wheezes rales or rhonchi noted. No significant dullness noted on percussion. CHEST: Palpation of the chest wall shows no significant chest wall tenderness. No other significant abnormalities noted. HEART: [place] [employer] GAS, No PSH, 1/6 LOGAN aortic area, 1/6 barber systolic murmur mitral area, no rubs, no gallops. ABDOMEN: Soft, no significant tenderness appreciated, normoactive bowel sounds. No guarding, no rebound. No rigidity noted . No masses appreciated. EXTREMITIES: Pedal pulses are 1-2+, no calf tenderness noted. No clubbing or cyanosis. Negative pedal edema noted NEUROLOGICAL: Focused neurological exam showed no significant neurologic deficit. Normal speech, no focal weakness appreciated. PSYCH: Normal mood, normal affect. Judgment and insight within normal limits. SKIN: No significant ecchymosis, skin is noted to be warm. MUSCULOSKELETAL EXAM: No significant acute joint swelling noted. Right ankle has some external fixation device and is bandaged up. Results Laboratory Results: 02/14/18 09:47 02/14/18 09:47 02/14/18 02/14/18 09:47 09:47 WBC 16.4 H RBC 5.69 H Hgb 14.5 D Hct 45.0 MCV 79 L MCH 25.5 L MCHC 32.2 RDW 19.1 H Plt Count 146 L Seg Neutrophils % 83.5 H Lymphocytes % 6.3 L Monocytes % 9.5 Eosinophils % 0.1 Basophils % 0.6 Absolute Neutrophils 13.7 H Absolute Lymphocytes 1.0 Absolute Monocytes 1.6 H Absolute Eosinophils 0.0 Absolute Basophils 0.1 Sodium 130.8 L Potassium 4.2 Chloride 93 L Carbon Dioxide 30 Anion Gap 8 BUN 10 Creatinine 0.62 Est GFR ( Amer) > 60 Est GFR (Non-Af Amer) > 60 Glucose 101 Calcium 8.4 Phosphorus 5.0 H Magnesium 1.8 Total Bilirubin 0.2 AST 16 ALT 19 Alkaline Phosphatase 53 Total Protein 5.6 L Albumin 3.4 L 02/14/18 06:36 Troponin I < 0.012 EKG Comments: Admission twelve-lead EKG shows sinus rhythm without acute ST-T wave changes noted. Telemetry strips shows sinus rhythm without any sustained tachycardia or bradycardia. Impressions: Fluoroscopy 02/14/18 00:00 IMPRESSION: IMAGE(S) OBTAINED DURING PROCEDURE. Ankle X-Ray 02/14/18 00:21 IMPRESSION: Fracture dislocation of the right ankle. Chest X-Ray 02/14/18 00:35 IMPRESSION: No acute cardiopulmonary findings. Assessment & Plan - Diagnosis (1) Preoperative cardiovascular examination Is this a current diagnosis for this admission?: Yes (2) Chest discomfort Is this a current diagnosis for this admission?: Yes (3) COPD (chronic obstructive pulmonary disease) Qualifiers: COPD type: chronic bronchitis Is this a current diagnosis for this admission?: Yes (4) Pre-syncope Is this a current diagnosis for this admission?: Yes (5) Tobacco abuse Is this a current diagnosis for this admission?: Yes - Notes Notes: Preop cardiovascular examination: Patient claims history of exertional chest pain. Did not have any recent stress test. Will schedule patient for a 2D echo and a nuclear stress test for further risk assessment. In the meantime will place patient on Lipitor and small dose of beta 1 selective beta-delisa. Tobacco abuse: Patient advised to quit smoking. Recommend nicotine patch. COPD: Currently stable. Patient has been advised to quit smoking. Continue current bronchodilator and steroid inhaler therapy as needed. Chest discomfort: To be evaluated by nuclear stress test and a 2D echocardiogram. Near-syncope: Agree with cardiac monitoring. Recommend DVT prophylaxis and adequate pain control as well as pulmonary toilet. - Time Time Spent: 30 to 50 Minutes - CODE STATUS was discussed, patient remains full code. Surrogate decision-maker patient's son. Multiple medical problems were addressed. More than 50% of the time spent coordinating care, discussing management plans with involved caregivers. Management plans discussed with involved personnels. Medical decision making was of moderate to high complexity , patient's has multiple comorbidities. Medications reviewed and adjusted accordingly: Yes
[2018-02-14] MEDS ORDERED: METOPROLOL SUCCINATE 25 MG TAB.SR.24H PO ONE (13:30)
[2018-02-14] MEDS: LEVALBUTEROL HCL NEB 0.63 MG/3 ML AMPUL NEB SCH (15:58)
[2018-02-14] MEDS: DOCUSATE SODIUM 100 MG CAPSULE PO SCH (17:15)
[2018-02-14] MEDS: RIVAROXABAN 10 MG TABLET PO SCH (17:15)
[2018-02-14] MEDS: METOPROLOL SUCCINATE 25 MG TAB.SR.24H PO SCH (20:52)
[2018-02-14] MEDS: ATORVASTATIN CALCIUM 40 MG TABLET PO SCH (20:52)
[2018-02-15] MEDS: LEVALBUTEROL HCL NEB 0.63 MG/3 ML AMPUL NEB SCH ×4 (00:11→23:41)
[2018-02-15 05:17] LABS: HEMATOCRIT 42.7 % (36.0-47.0); HEMOGLOBIN 13.8 g/dL (12.0-15.5); MEAN CORPUSCULAR HEMOGLOBIN 25.8 pg (27.0-33.4); MEAN CORPUSCULAR HGB CONC 32.3 g/dL (32.0-36.0); MEAN CORPUSCULAR VOLUME 80 fl (80-97); PLATELET COUNT 108 10^3/uL (150-450); RED BLOOD COUNT 5.34 10^6/uL (3.72-5.28); RED CELL DISTRIBUTION WIDTH 19.3 % (11.5-14.0); WHITE BLOOD COUNT 9.2 10^3/uL (4.0-10.5)
[2018-02-15 05:33] LABS: BLOOD UREA NITROGEN 8 mg/dL (7-20); CALCIUM 8.6 mg/dL (8.4-10.2); CARBON DIOXIDE 35 mmol/L (22-30); CHLORIDE 95 mmol/L (98-107); GLUCOSE 81 mg/dL (75-110); POTASSIUM 4.6 mmol/L (3.6-5.0)
[2018-02-15 05:38] LABS: SODIUM 133.4 mmol/L (137-145)
[2018-02-15 05:39] LABS: ANION GAP 3 (5-19)
[2018-02-15] MEDS: OXYCODONE-ACETAMINOPHEN 5-325 MG TABLET PO PRN (06:06)
[2018-02-15] MEDS: CEFAZOLIN 2 GM/D5W RTU 2 GM/50 ML RTUPB IV SCH ×4 (06:06→22:49)
[2018-02-15] MEDS: ONDANSETRON HCL INJ/PF 4 MG/2 ML SDV IV PRN ×2 (06:06→12:06)
[2018-02-15] MEDS: NICOTINE 21 MG/24 HR PATCH.TD24 TD SCH (10:14)
[2018-02-15] MEDS: METOPROLOL SUCCINATE 25 MG TAB.SR.24H PO SCH ×2 (10:15→22:50)
[2018-02-15] MEDS: TIOTROPIUM BROMIDE DPI 5 CAP/KIT (18 MCG/CAP) IH SCH (10:15)
[2018-02-15] MEDS: DOCUSATE SODIUM 100 MG CAPSULE PO SCH ×2 (10:15→16:41)
[2018-02-15] MEDS: FENTANYL CITRATE INJ/PF 100 MCG/2 ML AMPUL IV PRN ×3 (11:07→19:38)
--- NOTE | 2018-02-15 11:12 | PDOC PROGRESS REPORT ---
Subjective Progress Note for:: 02/15/18 Subjective:: 72-year-old white female one day status post reduction and external fixation right open ankle fracture and dislocation. Patient reports her pain fluctuates however feels slightly nauseated from analgesic medication. She was informed that she has antinausea medication on order as needed. She voiced understanding. No other concerns at this time. She denies tingling or numbness , chest pain shortness of breath. Reason For Visit: RIGHT ANKLE OPEN FRACTURE, DISLOCATION Physical Exam Vital Signs: Temp Pulse Resp BP Pulse Ox 36.4 C 72 18 107/46 L 95 02/15/18 08:00 02/15/18 08:00 02/15/18 08:00 02/15/18 08:00 02/15/18 08:00 Intake & Output 02/14/18 02/15/18 02/16/18 06:59 06:59 06:59 Intake Total 1150 3766 Output Total 5 2450 Balance 1145 1316 Weight 68.039 kg 79.2 kg Additional comments: Patient sitting in chair in the bedside with right lower extremity elevated on collapsible foot rest. External fixator is intact and in place. Compression dressing clean dry and intact. This is left in place. Slightly tender to palpation along medial and lateral malleoli. Less than 2 seconds capillary refill to toes. Minimal pedal edema. Flexion and extension of toes intact. Additional comments: Patient remains nonweightbearing status on right lower extremity. Results Laboratory Results: 02/15/18 04:26 02/15/18 04:26 02/15/18 02/15/18 04:26 04:26 WBC 9.2 RBC 5.34 H Hgb 13.8 Hct 42.7 MCV 80 MCH 25.8 L MCHC 32.3 RDW 19.3 H Plt Count 108 L Sodium 133.4 L Potassium 4.6 Chloride 95 L Carbon Dioxide 35 H Anion Gap 3 L BUN 8 Creatinine 0.60 Est GFR ( Amer) > 60 Est GFR (Non-Af Amer) > 60 Glucose 81 Calcium 8.6 02/14/18 06:36 Troponin I < 0.012 Impressions: Fluoroscopy 02/14/18 00:00 IMPRESSION: IMAGE(S) OBTAINED DURING PROCEDURE. Ankle X-Ray 02/14/18 00:21 IMPRESSION: Fracture dislocation of the right ankle. Chest X-Ray 02/14/18 00:35 IMPRESSION: No acute cardiopulmonary findings. Assessment & Plan - Diagnosis (1) Open right ankle fracture Qualifiers: Encounter type: initial encounter Open fracture type: open type III Qualified Code(s): S82.891C - Other fracture of right lower leg, initial encounter for open fracture type IIIA, IIIB, or IIIC Is this a current diagnosis for this admission?: Yes Plan: 72-year-old white female one day status post external fixation right ankle open fracture dislocation. Patient feeling nauseated however pain is well controlled. She was informed of her antinausea medication ordered as needed. Throughout stay at the hospital we will continue: #1 nonweightbearing right lower extremity continue aggressive elevation #2 pain control #3 Ancef IV for bacterial prophylaxis. #4 patient will require repeat operative intervention for definitive fixation of her distal fibula fracture if swelling permits within the next 24-48 hours. #5 Cardiac stress test planned for February 16, 2018 in preparation for clearance for surgery
[2018-02-15] MEDS ORDERED: PROMETHAZINE HCL 25 MG TABLET PO ONE (12:30)
[2018-02-15] MEDS ORDERED: PROMETHAZINE HCL 25 MG SUPP.RECT PR PRN (13:16)
[2018-02-15] MEDS ORDERED: PROMETHAZINE HCL 25 MG TABLET PO PRN (13:16)
[2018-02-15] MEDS ORDERED: MAGNESIUM CITRATE 296 ML BOTTLE PO PRN (13:17)
[2018-02-15] MEDS ORDERED: PREGABALIN 75 MG CAPSULE PO ONE (13:45)
[2018-02-15] MEDS ORDERED: BISACODYL 10 MG SUPP.RECT PR ONE (13:45)
--- NOTE | 2018-02-15 15:32 | PDOC PROGRESS REPORT ---
Subjective Progress Note for:: 02/15/18 Subjective:: Nausea this am, no cough or expectoration. Constipated Reason For Visit: RIGHT ANKLE OPEN FRACTURE, DISLOCATION Physical Exam Vital Signs: Temp Pulse Resp BP Pulse Ox 97.5 F 71 18 128/55 H 91 L 02/15/18 11:57 02/15/18 11:57 02/15/18 11:57 02/15/18 11:57 02/15/18 11:57 Intake & Output 02/14/18 02/15/18 02/16/18 06:59 06:59 06:59 Intake Total 1150 3766 Output Total 5 2450 Balance 1145 1316 Weight 68.039 kg 79.2 kg General appearance: PRESENT: mild distress Eye exam: PRESENT: EOMI, PERRLA. ABSENT: scleral icterus Ear exam: PRESENT: normal external ear exam Mouth exam: PRESENT: moist Neck exam: ABSENT: tracheal deviation Respiratory exam: PRESENT: rhonchi, symmetrical, unlabored, wheezes Cardiovascular exam: PRESENT: RRR GI/Abdominal exam: PRESENT: normal bowel sounds, soft. ABSENT: tenderness Rectal exam: PRESENT: deferred Musculoskeletal exam: PRESENT: other - R foot pins in place Neurological exam: PRESENT: alert, awake, oriented to person, oriented to place , oriented to time Psychiatric exam: PRESENT: normal mood Skin exam: ABSENT: rash Results Laboratory Results: 02/15/18 04:26 02/15/18 04:26 02/15/18 02/15/18 04:26 04:26 WBC 9.2 RBC 5.34 H Hgb 13.8 Hct 42.7 MCV 80 MCH 25.8 L MCHC 32.3 RDW 19.3 H Plt Count 108 L Sodium 133.4 L Potassium 4.6 Chloride 95 L Carbon Dioxide 35 H Anion Gap 3 L BUN 8 Creatinine 0.60 Est GFR ( Amer) > 60 Est GFR (Non-Af Amer) > 60 Glucose 81 Calcium 8.6 02/14/18 06:36 Troponin I < 0.012 Impressions: Fluoroscopy 02/14/18 00:00 IMPRESSION: IMAGE(S) OBTAINED DURING PROCEDURE. Ankle X-Ray 02/14/18 00:21 IMPRESSION: Fracture dislocation of the right ankle. Chest X-Ray 02/14/18 00:35 IMPRESSION: No acute cardiopulmonary findings. Assessment & Plan - Diagnosis (1) Fall Qualifiers: Encounter type: sequela Qualified Code(s): W19.XXXS - Unspecified fall, sequela Is this a current diagnosis for this admission?: Yes (2) Pre-syncope Is this a current diagnosis for this admission?: Yes Plan: Will need cardiology pre op clearance given smoking history and report of exertional chest pain and dyspnea. Cardiology consult appreciated. Plan for echocardiogram and stress test in the morning for risk stratification prior to surgery. (3) COPD (chronic obstructive pulmonary disease) Qualifiers: COPD type: chronic bronchitis Is this a current diagnosis for this admission?: Yes Plan: Inhalers and nebs, supplemental oxygen (4) Tobacco abuse Is this a current diagnosis for this admission?: Yes Plan: Nicotine patch (5) Open right ankle fracture Qualifiers: Encounter type: initial encounter Open fracture type: open type III Qualified Code(s): S82.891C - Other fracture of right lower leg, initial encounter for open fracture type IIIA, IIIB, or IIIC Is this a current diagnosis for this admission?: Yes Plan: Management per Orthopedic surgery. Pain control (6) Nausea Is this a current diagnosis for this admission?: Yes Plan: Anti emetics. Treat constipation (7) Constipation Is this a current diagnosis for this admission?: Yes Plan: laxatives and stool softeners - Time Time Spent with patient: 25-34 minutes
[2018-02-15] MEDS: RIVAROXABAN 10 MG TABLET PO SCH (16:41)
[2018-02-15] MEDS: RINGERS SOLUTION,LACTATED 1,000 ML IV PRN (16:43)
[2018-02-15] MEDS: PREGABALIN 75 MG CAPSULE PO SCH (22:49)
[2018-02-15] MEDS: OXYCODONE HCL IR 5 MG TABLET PO PRN (22:49)
[2018-02-15] MEDS: SENNOSIDES/DOCUSATE 8.6-50 MG 1 EACH TABLET PO SCH (22:50)
[2018-02-15] MEDS: ATORVASTATIN CALCIUM 40 MG TABLET PO SCH (22:50)
[2018-02-16] MEDS: FENTANYL CITRATE INJ/PF 100 MCG/2 ML AMPUL IV PRN ×4 (00:07→22:37)
[2018-02-16] MEDS: RINGERS SOLUTION,LACTATED 1,000 ML IV PRN ×2 (07:03→22:38)
[2018-02-16] MEDS: CEFAZOLIN 2 GM/D5W RTU 2 GM/50 ML RTUPB IV SCH ×3 (07:04→14:29)
[2018-02-16] MEDS: LEVALBUTEROL HCL NEB 0.63 MG/3 ML AMPUL NEB SCH ×3 (08:16→23:44)
[2018-02-16] MEDS ORDERED: GLUCAGON,HUMAN RECOMB 1 MG INJ SUBCUT PRN (09:51)
[2018-02-16] MEDS ORDERED: DEXTROSE 50%-WATER 25 GM/50 ML DISP.SYRIN IV PRN ×2 (09:51)
[2018-02-16] MEDS ORDERED: DEXTROSE 40% GEL 15 GM TUBE PO PRN ×2 (09:51)
--- NOTE | 2018-02-16 09:51 | PDOC PROGRESS REPORT ---
Subjective Progress Note for:: 02/16/18 Subjective:: Patient currently has stress testing. Reason For Visit: RIGHT ANKLE OPEN FRACTURE, DISLOCATION Physical Exam Vital Signs: Temp Pulse Resp BP Pulse Ox 98.5 F 82 18 116/61 92 02/16/18 08:03 02/16/18 08:15 02/16/18 08:15 02/16/18 08:03 02/16/18 08:15 Intake & Output 02/15/18 02/16/18 02/17/18 06:59 06:59 06:59 Intake Total 3766 3696 Output Total 2450 700 Balance 1316 2996 Weight 79.2 kg Results Laboratory Results: 02/15/18 04:26 02/15/18 04:26 02/14/18 06:36 Troponin I < 0.012 Impressions: Fluoroscopy 02/14/18 00:00 IMPRESSION: IMAGE(S) OBTAINED DURING PROCEDURE. Ankle X-Ray 02/14/18 00:21 IMPRESSION: Fracture dislocation of the right ankle. Chest X-Ray 02/14/18 00:35 IMPRESSION: No acute cardiopulmonary findings. Assessment & Plan - Diagnosis (1) Open right ankle fracture Qualifiers: Encounter type: initial encounter Open fracture type: open type III Qualified Code(s): S82.891C - Other fracture of right lower leg, initial encounter for open fracture type IIIA, IIIB, or IIIC Is this a current diagnosis for this admission?: Yes Plan: Status post external fixation right ankle open fracture dislocation #1 nonweightbearing right lower extremity continue aggressive elevation #2 pain control #3 Ancef IV for bacterial prophylaxis. #4 patient will require repeat operative intervention for definitive fixation of her distal fibula fracture if swelling medically optimized for surgery will proceed on 02/17/18.
[2018-02-16] MEDS: DOCUSATE SODIUM 100 MG CAPSULE PO SCH ×2 (10:52→16:47)
[2018-02-16] MEDS: METOPROLOL SUCCINATE 25 MG TAB.SR.24H PO SCH ×2 (10:56→22:38)
[2018-02-16] MEDS: PREGABALIN 75 MG CAPSULE PO SCH ×2 (10:57→22:38)
[2018-02-16] MEDS: NICOTINE 21 MG/24 HR PATCH.TD24 TD SCH (10:57)
[2018-02-16] MEDS: TIOTROPIUM BROMIDE DPI 5 CAP/KIT (18 MCG/CAP) IH SCH (10:57)
[2018-02-16] MEDS: OXYCODONE HCL IR 5 MG TABLET PO PRN ×3 (10:57→22:38)
--- NOTE | 2018-02-16 12:31 | DRAGON STRESS TEST REPORT ---
INTRAVENOUS LEXISCAN CARDIOLITE STRESS TEST USING SINGLE PHOTON EMMISION COMPUTERIZED TOMOGRAPHIC. DATE OF PROCEDURE: February 16, 2018, INDICATION : Chest pain CARDIAC RISK FACTORS: Dyslipidemia, tobacco abuse RESTING EKG: Sinus rhythm without any baseline ST-T wave changes STRESS EKG: No significant ST segment changes noted with LexiScan bolus REASON FOR TERMINATION: Protocol. PROCEDURE REPORT: Baseline heart rate 78 beats per minute with blood pressure of 146/62. Patient had no significant complaints. Patient was bolused with Lexiscan 0.4 mg intravenously followed by saline bolus. Heart rate at 2 minutes post bolus 94 with a blood pressure of 135/45. 3 minutes post bolus heart rate 89 with blood pressure of 147/49. No significant EKG changes were noted. Patient had no significant complaints during the procedure or postprocedure. Patient injected with Aminophyllin 75 mg at 3 minutes or later after Lexiscan bolus. CONCLUSIONS: Normal EKG and hemodynamic response to IV LexiScan. NUCLEAR DATA: At rest the patient was given 10.80 millicuries of technetium 99 sestamibi injected intravenously. As per protocol rest gated SPECT images were obtained. On day of stress test, the patient was given intravenous LexiScan at a dose of 0.4 mg in 5 mL intravenously, followed by flush with normal saline. Subsequently the stress dose of 32.0 millicuries of technetium 99 sestamibi was injected intravenously. As per protocol stress gated images were obtained. NUCLEAR INTERPRETATION: Both raw and processed data were used for interpretation. Visual, qualitative, computer-generated quantitative data was used. There was good myocardial uptake of technetium compound. Motion artifact and soft tissue attenuations were noted. Increased visceral uptake was noted. No definitive areas of transient perfusion defect noted, No definitive areas of fixed perfusion defect or scars noted. EKG gated imaging showed LV EF at 78 %, rest and stress gated EF similar visually. T. I D. ratio was 1.07. Lung heart ratio noted to be within normal limits 0.28. No significant extracardiac and abnormal radiotracer activities were noted. RV free wall uptake was noted to be WNL. IMPRESSION: Also refer to comments under nuclear interpretation. Also test results needs to be interpreted in the context of pretest probability. 1. No definitive areas of transient perfusion defect noted. 2. There is no definitive scintigraphic evidence of myocardial infarction/scar. 3. EKG gated imaging shows left ventricular ejection fraction of approx. 78 %. 4. Clinical correlation requested as occasionally single vessel disease or balanced ischemia could be missed. In approximately 10% of the cases Lexiscan may not cause adequate vasodilatory stress. RECOMMENDATIONS: Aggressive risk factor modification and medical management. Further evaluation may be needed if continued symptoms or other high risk indicators are noted on clinical evaluation. Close cardiology follow-up is also recommended. Clinical correlation with echocardiogram derived ejection fraction. Inability to exercise by itself can lead to increased cardiovascular event risks. Consider cardiology consultation and or follow-up if clinically indicated. I am available for cardiology evaluation and consultation if requested by the biazzi nitrator operator, unless patient already has a maintenance millwright. STU
--- NOTE | 2018-02-16 13:53 | PDOC PROGRESS REPORT ---
Subjective Progress Note for:: 02/16/18 Subjective:: 72 year old female with past medical history of COPD. She presented to the emergency room after she had an episode of shortness of breath lightheadedness and fall after which she sustained a right open ankle fracture with dislocation. The patient was taken to the OR on 02/14/18 Dr. Terence Vanegas and pinning was performed. Plan is for repeat surgery for definitive fixation of the lateral malleolus. The medical service was consulted for management of her COPD. She smokes a pack per day and is on 3L of O2 by [facility] only. The patient admitted to exertional dyspnea and chest pain. No chest pain at rest or at present. Stress test showed no areas of ischemia. No complaints at present. Reason For Visit: RIGHT ANKLE OPEN FRACTURE, DISLOCATION Physical Exam Vital Signs: Temp Pulse Resp BP Pulse Ox 98.8 F 78 16 104/73 94 02/16/18 12:34 02/16/18 12:34 02/16/18 12:34 02/16/18 12:34 02/16/18 12:34 Intake & Output 02/15/18 02/16/18 02/17/18 06:59 06:59 06:59 Intake Total 3766 3696 Output Total 2450 700 Balance 1316 2996 Weight 79.2 kg General appearance: PRESENT: no acute distress Eye exam: PRESENT: EOMI, PERRLA. ABSENT: scleral icterus Mouth exam: PRESENT: moist, neck supple Respiratory exam: PRESENT: rhonchi, symmetrical, unlabored Cardiovascular exam: PRESENT: RRR GI/Abdominal exam: PRESENT: normal bowel sounds, soft. ABSENT: tenderness Rectal exam: PRESENT: deferred Results Laboratory Results: 02/15/18 04:26 02/15/18 04:26 02/14/18 06:36 Troponin I < 0.012 Impressions: Fluoroscopy 02/14/18 00:00 IMPRESSION: IMAGE(S) OBTAINED DURING PROCEDURE. Ankle X-Ray 02/14/18 00:21 IMPRESSION: Fracture dislocation of the right ankle. Chest X-Ray 02/14/18 00:35 IMPRESSION: No acute cardiopulmonary findings. Assessment & Plan - Diagnosis (1) Fall Qualifiers: Encounter type: sequela Qualified Code(s): W19.XXXS - Unspecified fall, sequela Is this a current diagnosis for this admission?: Yes (2) Pre-syncope Is this a current diagnosis for this admission?: Yes Plan: Cardiology consult appreciated. Fall precautions. (3) COPD (chronic obstructive pulmonary disease) Qualifiers: COPD type: chronic bronchitis Is this a current diagnosis for this admission?: Yes Plan: Inhalers and nebs, supplemental oxygen (4) Tobacco abuse Is this a current diagnosis for this admission?: Yes Plan: Nicotine patch (5) Open right ankle fracture Qualifiers: Encounter type: initial encounter Open fracture type: open type III Qualified Code(s): S82.891C - Other fracture of right lower leg, initial encounter for open fracture type IIIA, IIIB, or IIIC Is this a current diagnosis for this admission?: Yes (6) Nausea Is this a current diagnosis for this admission?: Yes Plan: Anti emetics prn. (7) Constipation Is this a current diagnosis for this admission?: Yes Plan: Laxatives and stool softeners prn - Time Time Spent with patient: 25-34 minutes
--- NOTE | 2018-02-16 14:11 | XCELERA REPORT ---
[address] [address] Transthoracic Echocardiogram Report Name: RACHEL SALES Age: 72 yrs Gender: Female : 1945 Patient Status: Inpatient Patient Location: [address] [place] [address] Study Date: 02/16/2018 09:33 AM Height: 62 in Weight: 150 lb BSA: 1.7 m2 Procedure: A complete two-dimensional transthoracic echocardiogram was performed (2D, M-mode, spectral and color flow Doppler). The study was technically difficult with many images being suboptimal in quality. Reason For Study: pre op clearance Ordering Physician: MARIELOS JIMENES Performed By: Carol Galvez Interpretation Summary The left ventricular ejection fraction is normal. There is borderline concentric left ventricular hypertrophy. Doppler measurements suggest impaired left ventricular relaxation, which is associated with grade I/IV or mild diastolic dysfunction The left ventricle is grossly normal size. Wall motion cannot be accurately commented on, but no definite regional wall motion abnormalities noted. The right ventricular systolic function is normal. Borderline right ventricular enlargement. The right atrium is normal. The left atrial size is normal. There is a trace amount of mitral regurgitation There is no mitral valve stenosis. No aortic regurgitation is present. There is no aortic valve stenosis There is a trace to mild amount of tricuspid regurgitation There is moderate pulmonary hypertension by echo Right ventricular systolic pressure is estimated to be elevated at 40- 50mmHg. The aortic root is not well visualized but is probably normal size. The inferior vena cava appeared normal and decreased < 50% with respiration (RAP 10-15 mmHg) There is no pericardial effusion. MMode/2D Measurements & Calculations RVDd: 2.9 cm LVIDd: 3.1 cm FS: 32.2 % Ao root diam: 2.8 cm IVSd: 0.97 cm LVIDs: 2.1 cm EDV(Teich): 37.2 ml LVPWd: 0.96 cm ESV(Teich): 14.1 ml Ao root area: 6.1 cm2 EF(Teich): 61.9 % Doppler Measurements & Calculations MV E max luis m: MV dec slope: Ao V2 max: LV V1 max P.5 cm/sec 176.5 cm/sec 9.1 mmHg MV A max luis m: 592.9 cm/sec2 Ao max PG: LV V1 max: 95.1 cm/sec MV dec time: 12.5 mmHg 150.9 cm/sec MV E/A: 1.1 0.18 sec PA V2 max: TR max luis m: 123.0 cm/sec 331.5 cm/sec PA max P.1 mmHgTR max P.0 mmHg Left Ventricle The left ventricle is grossly normal size. There is borderline concentric left ventricular hypertrophy. The left ventricular ejection fraction is normal. Doppler measurements suggest impaired left ventricular relaxation, which is associated with grade I/IV or mild diastolic dysfunction. Wall motion cannot be accurately commented on, but no definite regional wall motion abnormalities noted. Right Ventricle Borderline right ventricular enlargement. There is normal right ventricular wall thickness. The right ventricular systolic function is normal. Atria The right atrium is normal. The left atrial size is normal. Interarterial septum not well visualized and not well dopplered. Cannot comment on ASD/PFO presence. Mitral Valve The mitral valve is grossly normal. There is no mitral valve stenosis. There is a trace amount of mitral regurgitation. Aortic Valve The aortic valve opens well. There is no aortic valve stenosis. No aortic regurgitation is present. Tricuspid Valve The tricuspid valve is not well visualized secondary to technical limitations. There is no tricuspid stenosis. There is a trace to mild amount of tricuspid regurgitation. There is moderate pulmonary hypertension by echo. Right ventricular systolic pressure is estimated to be elevated at 40-50mmHg. Pulmonic Valve The pulmonic valve is not well visualized. Great Vessels The aortic root is not well visualized but is probably normal size. The inferior vena cava appeared normal and decreased < 50% with respiration (RAP 10-15 mmHg). Effusions There is no pericardial effusion. : MARIELOS JIMENES > Shashi Ramirez
[2018-02-16] MEDS ORDERED: AMINOPHYLLINE INJ/PF 250 MG/10 ML SDV IV ONE (15:17)
[2018-02-16] MEDS ORDERED: REGADENOSON INJ 0.4 MG/5 ML DISP.SYRIN IV ONE (15:17)
--- NOTE | 2018-02-16 20:35 | PDOC PROGRESS REPORT ---
Subjective Progress Note for:: 02/16/18 Subjective:: Patient seems to be doing better. In the morning nuclear stress test procedure , risk benefits were discussed. Patient subsequently underwent nuclear stress test without any complications. Pt is denying any chest arm or neck discomfort. Patient denying any PND, orthopnea. Patient denied any sustained palpitations, dizziness, syncope, near syncope. Patient denying any fever chills. Patient denying any other significant discomfort. Patient is maintaining sinus rhythm. Review of systems: Rest review of systems negative. Medications: Medications have been reviewed. Reason For Visit: RIGHT ANKLE OPEN FRACTURE, DISLOCATION Physical Exam Vital Signs: Temp Pulse Resp BP Pulse Ox 98.1 F 83 20 127/54 H 92 02/16/18 16:15 02/16/18 16:15 02/16/18 16:15 02/16/18 16:15 02/16/18 16:15 Intake & Output 02/15/18 02/16/18 02/17/18 06:59 06:59 06:59 Intake Total 3766 3696 1100 Output Total 2450 700 Balance 1316 2996 1100 Weight 79.2 kg Exam: GENERAL: well-nourished and in no acute distress. Alert and oriented x3 HEAD: Atraumatic, normocephalic. EYES: Pupils equal round and reactive to light, extraocular movements intact, sclera anicteric, conjunctiva are normal. ENT: TMs normal, nares patent, oropharynx clear without exudates. Moist mucous membranes. No oral ulcerations or bleeding gums noted NECK: supple without lymphadenopathy. Trachea is central. No cervical or axillary lymphadenopathy noted. Carotids are 2+, JVD WNL LUNGS: Respiration seems nonlabored, no significant accessory muscle action noted. Breath sounds clear to auscultation bilaterally and equal noted. No wheezes rales or rhonchi noted. No significant dullness noted on percussion. CHEST: Palpation of the chest wall shows no significant chest wall tenderness. No other significant abnormalities noted. 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 ABDOMEN: Soft, no significant tenderness appreciated, normoactive bowel sounds. No guarding, no rebound. No rigidity noted . No masses appreciated. EXTREMITIES: Pedal pulses are 1-2+, no calf tenderness noted. No clubbing or cyanosis.trace pedal edema noted NEUROLOGICAL: Focused neurological exam showed no significant neurologic deficit. Normal speech, no focal weakness appreciated. PSYCH: Normal mood, normal affect. Judgment and insight within normal limits. SKIN: No significant ecchymosis, skin is noted to be warm. MUSCULOSKELETAL EXAM: No significant acute joint swelling noted. Findings of fracture right ankle along with pins and bandages noted. Results Laboratory Results: 02/15/18 04:26 02/15/18 04:26 02/14/18 06:36 Troponin I < 0.012 EKG Comments: Telemetry shows sinus rhythm without any sustained tachycardia or bradycardia. Impressions: Fluoroscopy 02/14/18 00:00 IMPRESSION: IMAGE(S) OBTAINED DURING PROCEDURE. Ankle X-Ray 02/14/18 00:21 IMPRESSION: Fracture dislocation of the right ankle. Chest X-Ray 02/14/18 00:35 IMPRESSION: No acute cardiopulmonary findings. Assessment & Plan - Diagnosis (1) Preoperative cardiovascular examination Is this a current diagnosis for this admission?: Yes (2) Chest discomfort Is this a current diagnosis for this admission?: Yes (3) COPD (chronic obstructive pulmonary disease) Qualifiers: COPD type: chronic bronchitis Is this a current diagnosis for this admission?: Yes (4) Pre-syncope Is this a current diagnosis for this admission?: Yes (5) Tobacco abuse Is this a current diagnosis for this admission?: Yes - Notes Notes: Chest pain: Patient claims chest pain is resolved without any recurrence. This was evaluated with a nuclear stress test. Nuclear stress test was negative for any significant areas of ischemia or any significant areas of scar. The nuclear stress test is felt to be relatively low risk. Patient informed that occasionally single-vessel disease and balanced ischemia could be missed. Patient advised aggressive risk factor modification and medical therapy. Patient informed that further evaluation may become necessary if symptoms worsens or there is a development of new symptoms indicative of angina or angina equivalent symptom. Preop cardiovascular examination: Based on nuclear stress test, 2D echocardiogram results, patient cleared for surgery with average risk for her age. COPD: Recommend pulmonary toilet, incentive spirometry. Presyncope: Cause not., So far no significant cardiac dysrhythmia noted. Patient may benefit from prolonged monitoring as an outpatient via a event monitor. Tobacco abuse: Patient has been advised to quit smoking. - Time Time with patient: Greater than 35 minutes - Patient was seen multiple times. Total time exceeds 40 minutes. In the morning nuclear stress test procedure, risks benefits, alternatives were discussed. Patient seen during the stress test. Patient also seen after stress test when results were discussed with the patient in detail. Patient's questions were answered. Nuclear stress test results were discussed with the patient. Patient was informed that no definitive evidence of pharmacologic stress-induced ischemia noted. No definite fixed defects were noted. Patient informed that occasionally significant single vessel disease or balanced ischemia could be missed. However based on the current study results, would recommend aggressive risk factor modification and medical therapy. It may also be worthwhile to consider evaluation or empiric management of other causes of chest pain. Should no other cause be found and if persistent in having chest pain, then cardiac catheterization should be considered. Right now, recommendations are for aggressive risk factor modification and medical management. More than 50% of the time spent coordinating care, discussing management plans with involved caregivers. Management plans discussed with involved personnels. Medical decision making was of moderate to high complexity, patient's has multiple comorbidities. Medications reviewed and adjusted accordingly: Yes
[2018-02-16] MEDS ORDERED: CEFAZOLIN SODIUM 2 GM in NORMAL SALINE 100 ML IV SCH (21:00)
[2018-02-16] MEDS: SENNOSIDES/DOCUSATE 8.6-50 MG 1 EACH TABLET PO SCH (22:38)
[2018-02-16] MEDS: ATORVASTATIN CALCIUM 40 MG TABLET PO SCH (22:38)
[2018-02-17] MEDS: ONDANSETRON HCL INJ/PF 4 MG/2 ML SDV IV PRN ×2 (00:08→23:21)
[2018-02-17] MEDS: OXYCODONE HCL IR 5 MG TABLET PO PRN ×4 (05:49→20:59)
[2018-02-17] MEDS: CEFAZOLIN SODIUM 2 GM in NORMAL SALINE 100 ML IV SCH ×4 (05:49→23:07)
[2018-02-17 06:35] LABS: ABSOLUTE EOSINOPHILS # (AUTO) 0.2 10^3/uL (0.0-0.6); ABSOLUTE MONOCYTES (AUTO) 1.4 10^3/uL (0.1-1.4); ABSOLUTE NEUT (AUTO) 4.8 10^3/uL (1.7-8.2); BASOPHILS % (AUTO) 0.5 % (0-2); EOSINOPHILS % (AUTO) 2.9 % (0-6); HEMATOCRIT 40.4 % (36.0-47.0); LYMPHOCYTES % (AUTO) 13.8 % (13-45); MEAN CORPUSCULAR HEMOGLOBIN 25.4 pg (27.0-33.4); MEAN CORPUSCULAR HGB CONC 32.2 g/dL (32.0-36.0); MEAN CORPUSCULAR VOLUME 79 fl (80-97); MONOCYTES % (AUTO) 18.4 % (3-13); PLATELET COUNT 106 10^3/uL (150-450); RED BLOOD COUNT 5.13 10^6/uL (3.72-5.28); RED CELL DISTRIBUTION WIDTH 19.5 % (11.5-14.0); SEGMENTED NEUTROPHILS % (AUTO) 64.4 % (42-78); TOTAL CELLS COUNTED % (AUTO) 100 %; WHITE BLOOD COUNT 7.5 10^3/uL (4.0-10.5)
[2018-02-17 06:45] LABS: INTERNATIONAL RATION (INR) 1.24; PROTHROMBIN TIME 16.4 SEC (11.4-15.4)
[2018-02-17 06:55] LABS: ALANINE AMINOTRANSFERASE 35 U/L (9-52); ALBUMIN 2.8 g/dL (3.5-5.0); ALKALINE PHOSPHATASE 93 U/L (38-126); ASPARTATE AMINO TRANSFERASE 74 U/L (14-36); BILIRUBIN,DIRECT 0.4 mg/dL (0.0-0.4); BILIRUBIN,TOTAL 0.6 mg/dL (0.2-1.3); BLOOD UREA NITROGEN 7 mg/dL (7-20); CALCIUM 8.4 mg/dL (8.4-10.2); GLUCOSE 85 mg/dL (75-110); PHOSPHORUS 4.4 mg/dL (2.5-4.5); POTASSIUM 3.9 mmol/L (3.6-5.0); TOTAL PROTEIN 4.7 g/dL (6.3-8.2)
[2018-02-17 07:01] LABS: CARBON DIOXIDE 38 mmol/L (22-30); CHLORIDE 98 mmol/L (98-107); SODIUM 135.6 mmol/L (137-145)
[2018-02-17 07:02] LABS: PARTIAL THROMBOPLASTIN TIME 33.4 SEC (23.5-35.8)
[2018-02-17 07:06] LABS: ANION GAP 2 (5-19)
[2018-02-17] MEDS: LEVALBUTEROL HCL NEB 0.63 MG/3 ML AMPUL NEB SCH ×3 (07:48→23:57)
--- NOTE | 2018-02-17 08:09 | PDOC PROGRESS REPORT ---
Subjective Progress Note for:: 02/17/18 Subjective:: Patient currently lying in bed comfortably. Continues to have some discomfort but is improving. Denies chest pain or shortness of breath. Reason For Visit: RIGHT ANKLE OPEN FRACTURE, DISLOCATION Physical Exam Vital Signs: Temp Pulse Resp BP Pulse Ox 98.3 F 75 18 127/57 H 93 02/16/18 23:47 02/17/18 07:47 02/17/18 07:47 02/16/18 23:47 02/17/18 07:47 Intake & Output 02/16/18 02/17/18 02/18/18 06:59 06:59 06:59 Intake Total 3696 2840 Output Total 700 550 Balance 2996 2290 Musculoskeletal exam: PRESENT: other - Right lower extremity: Pin sites clean/ dry/intact no erythema or drainage. Dorsalis pedis pulse 2+. Intact flexion- extension of the toes. Cap refill less than 2 seconds. Compartments soft and compressible no sign of compartment syndrome. Results Laboratory Results: 02/17/18 05:42 02/17/18 05:42 02/17/18 02/17/18 05:42 05:42 WBC 7.5 RBC 5.13 Hgb 13.0 Hct 40.4 MCV 79 L MCH 25.4 L MCHC 32.2 RDW 19.5 H Plt Count 106 L Seg Neutrophils % 64.4 Lymphocytes % 13.8 Monocytes % 18.4 H Eosinophils % 2.9 Basophils % 0.5 Absolute Neutrophils 4.8 Absolute Lymphocytes 1.0 Absolute Monocytes 1.4 Absolute Eosinophils 0.2 Absolute Basophils 0.0 Sodium 135.6 L Potassium 3.9 Chloride 98 Carbon Dioxide 38 H Anion Gap 2 L BUN 7 Creatinine 0.60 Est GFR ( Amer) > 60 Est GFR (Non-Af Amer) > 60 Glucose 85 Calcium 8.4 Phosphorus 4.4 Magnesium 1.8 Total Bilirubin 0.6 AST 74 H ALT 35 Alkaline Phosphatase 93 Total Protein 4.7 L Albumin 2.8 L 02/14/18 06:36 Troponin I < 0.012 Impressions: Fluoroscopy 02/14/18 00:00 IMPRESSION: IMAGE(S) OBTAINED DURING PROCEDURE. Ankle X-Ray 02/14/18 00:21 IMPRESSION: Fracture dislocation of the right ankle. Chest X-Ray 02/14/18 00:35 IMPRESSION: No acute cardiopulmonary findings. Assessment & Plan - Diagnosis (1) Open right ankle fracture Qualifiers: Encounter type: initial encounter Open fracture type: open type III Qualified Code(s): S82.891C - Other fracture of right lower leg, initial encounter for open fracture type IIIA, IIIB, or IIIC Is this a current diagnosis for this admission?: Yes Plan: Status post external fixation right ankle open fracture dislocation #1 nonweightbearing right lower extremity continue aggressive elevation #2 pain control #3 Ancef IV for bacterial prophylaxis. #4 Patient has received cardiac stress testing which was negative. We will proceed with operative intervention which includes open reduction internal fixation right distal fibula with removal of external fixator. Risks and benefits of the surgical procedure were explained to the patient risks including neurovascular risk of infection, postoperative pain, posttraumatic arthritis, hardware complication patient verbalized understanding consented for the procedure. Once operative fixation is complete anticipate discharge home 02/18/18.
[2018-02-17] MEDS: METOPROLOL SUCCINATE 25 MG TAB.SR.24H PO SCH ×2 (10:18→20:58)
[2018-02-17] MEDS: PREGABALIN 75 MG CAPSULE PO SCH ×2 (10:18→20:58)
[2018-02-17] MEDS: DOCUSATE SODIUM 100 MG CAPSULE PO SCH ×2 (10:18→16:56)
[2018-02-17] MEDS: TIOTROPIUM BROMIDE DPI 5 CAP/KIT (18 MCG/CAP) IH SCH (10:18)
[2018-02-17] MEDS: NICOTINE 21 MG/24 HR PATCH.TD24 TD SCH (10:19)
[2018-02-17] MEDS: FENTANYL CITRATE INJ/PF 100 MCG/2 ML AMPUL IV PRN ×2 (11:18→23:07)
--- NOTE | 2018-02-17 13:00 | PDOC PROGRESS REPORT ---
Subjective Progress Note for:: 02/17/18 Subjective:: No complaints. Waiting for surgery this afternoon. Reason For Visit: RIGHT ANKLE OPEN FRACTURE, DISLOCATION 72 year old female with past medical history of COPD. She presented to the emergency room after she had an episode of shortness of breath, lightheadedness and fall after which she sustained a right open ankle fracture with dislocation. The patient was taken to the OR on 02/14/18 Dr. Terence Vanegas and pinning was performed. Plan is for repeat surgery for definitive fixation of the lateral malleolus. The medical service was consulted for management of her COPD. She smokes a pack per day and is on 3L of O2 by [facility] only. Physical Exam Vital Signs: Temp Pulse Resp BP Pulse Ox 98.2 F 80 13 118/49 L 94 02/17/18 08:00 02/17/18 08:00 02/17/18 08:00 02/17/18 08:00 02/17/18 08:00 Intake & Output 02/16/18 02/17/18 02/18/18 06:59 06:59 06:59 Intake Total 3696 2840 Output Total 700 550 Balance 2996 2290 General appearance: PRESENT: no acute distress Respiratory exam: PRESENT: clear to auscultation radha. ABSENT: rales, rhonchi, wheezes Cardiovascular exam: PRESENT: RRR. ABSENT: diastolic murmur, rubs, systolic murmur Neurological exam: PRESENT: alert, awake, oriented to person, oriented to place , oriented to time, oriented to situation, CN II-XII grossly intact. ABSENT: motor sensory deficit Skin exam: PRESENT: dry, intact, warm. ABSENT: cyanosis, rash Results Laboratory Results: 02/17/18 05:42 02/17/18 05:42 02/17/18 02/17/18 05:42 05:42 WBC 7.5 RBC 5.13 Hgb 13.0 Hct 40.4 MCV 79 L MCH 25.4 L MCHC 32.2 RDW 19.5 H Plt Count 106 L Seg Neutrophils % 64.4 Lymphocytes % 13.8 Monocytes % 18.4 H Eosinophils % 2.9 Basophils % 0.5 Absolute Neutrophils 4.8 Absolute Lymphocytes 1.0 Absolute Monocytes 1.4 Absolute Eosinophils 0.2 Absolute Basophils 0.0 Sodium 135.6 L Potassium 3.9 Chloride 98 Carbon Dioxide 38 H Anion Gap 2 L BUN 7 Creatinine 0.60 Est GFR ( Amer) > 60 Est GFR (Non-Af Amer) > 60 Glucose 85 Calcium 8.4 Phosphorus 4.4 Magnesium 1.8 Total Bilirubin 0.6 AST 74 H ALT 35 Alkaline Phosphatase 93 Total Protein 4.7 L Albumin 2.8 L 02/14/18 06:36 Troponin I < 0.012 Impressions: Fluoroscopy 02/14/18 00:00 IMPRESSION: IMAGE(S) OBTAINED DURING PROCEDURE. Ankle X-Ray 02/14/18 00:21 IMPRESSION: Fracture dislocation of the right ankle. Chest X-Ray 02/14/18 00:35 IMPRESSION: No acute cardiopulmonary findings. Assessment & Plan - Diagnosis (1) COPD (chronic obstructive pulmonary disease) Qualifiers: COPD type: chronic bronchitis Is this a current diagnosis for this admission?: Yes Plan: Continue Spiriva, and prn beta agnonists. Add Symbicort. Oxygen as needed. (2) Tobacco abuse Is this a current diagnosis for this admission?: Yes Plan: Nicotine patch (3) Open right ankle fracture Qualifiers: Encounter type: subsequent encounter Open fracture type: open type III Is this a current diagnosis for this admission?: Yes Plan: Surgery today. - Time Time Spent with patient: 15-24 minutes Medications reviewed and adjusted accordingly: Yes Anticipated discharge: Home with Homehealth Within: within 24 hours - Inpatient Certification Based on my medical assessment, after consideration of the patient's comorbidities, presenting symptoms, or acuity I expect that the services needed warrant INPATIENT care.: Yes I certify that my determination is in accordance with my understanding of Medicare's requirements for reasonable and necessary INPATIENT services [42 CFR 412.3e].: Yes Medical Necessity: Failure to Improve With Outpatient Therapy, Need for Surgery
[2018-02-17] MEDS: RIVAROXABAN 10 MG TABLET PO SCH (16:08)
[2018-02-17] MEDS ORDERED: PROPOFOL INJ 200 MG/20 ML VIAL IV ONE (16:16)
[2018-02-17] MEDS ORDERED: MIDAZOLAM 2 MG/2 ML INJ ONE (16:50)
[2018-02-17] MEDS ORDERED: FENTANYL CITRATE INJ/PF 100 MCG/2 ML AMPUL ONE ×2 (16:50)
[2018-02-17] MEDS ORDERED: ONDANSETRON HCL INJ/PF 4 MG/2 ML SDV ONE (16:51)
[2018-02-17] MEDS ORDERED: ACETAMINOPHEN 100 ML IV ONE (16:51)
[2018-02-17] MEDS ORDERED: DEXAMETHASONE SOD PHOSPHATE INJ 4 MG/1 ML VIAL ONE (16:51)
[2018-02-17] MEDS ORDERED: TETRACAINE HCL/PF 20MG/2ML AMPULE (SPINAL) ONE (16:53)
[2018-02-17] MEDS ORDERED: EPHEDRINE SULFATE INJ 50 MG/1 ML AMPULE ONE (17:02)
[2018-02-17] MEDS ORDERED: MORPHINE SULFATE 10 MG/ML INJ IV PRN (18:15)
[2018-02-17] MEDS ORDERED: OXYCODONE-ACETAMINOPHEN 5-325 MG TABLET PO PRN ×2 (18:15)
[2018-02-17] MEDS ORDERED: DIPHENHYDRAMINE HCL 50 MG/ML VIAL IV PRN (18:15)
[2018-02-17] MEDS ORDERED: MEPERIDINE HCL/PF INJ 25 MG/1 ML DISP.SYRIN IV PRN (18:15)
[2018-02-17] MEDS ORDERED: PROMETHAZINE HCL INJ 25 MG/1 ML VIAL IV PRN ×2 (18:15)
[2018-02-17] MEDS ORDERED: FENTANYL CITRATE INJ/PF 100 MCG/2 ML AMPUL IV PRN ×3 (18:15)
--- NOTE | 2018-02-17 19:16 | Operative Report ---
Operative Report DATE OF SURGERY: 02/17/18 PREOPERATIVE DIAGNOSIS: Grade III open right ankle/lateral malleolus fracture dislocation POSTOPERATIVE DIAGNOSIS: Grade III fracture dislocation right ankle status post external fixation OPERATION: Removal of external fixator. Open reduction internal fixation right distal fibula fracture. Syndesmotic fixation right ankle SURGEON: ANJU MARTINS ANESTHESIA: Spinal COMPLICATIONS: None ESTIMATED BLOOD LOSS: Minimal PROCEDURE: Indication for above procedure: 72-year-old female who sustained a open fracture dislocation of her right ankle in 02/14/18. Patient underwent successful irrigation debridement with placement of external fixator. Patient swelling improved has been on IV antibiotics for the past 48 hours thus decision was made to proceed with definitive fixation of the distal fibula fracture. Procedure In Detail: Patient was seen and evaluated in the preoperative holding area. The RIGHT lower extremity was initialized and marked. Patient receiving scheduled Ancef for bacterial prophylaxis. Patient was taken back to the operative room where transferred to the operative table and placed under general anesthesia. Once they were adequately anesthetized a nonsterile tourniquet was placed on the lower extremity. A surgical team debriefing was performed ensuring all instrumentation was available, the surgical procedure was discussed with possible concerns reviewed. A timeout was done identifying correct patient, procedure and extremity everyone in attendance agree with this and verbalized no concerns. Patient's pin sites were then prepped with Betadine including the medial and lateral aspect of the calcaneal pin, these were then successfully removed. The medial wound demonstrated evidence of healing without evidence of necrosis or dehiscence. There is positive wrinkle sign with minimal swelling thus the decision was then made to proceed with definitive fixation of the distal fibula. Right lower extremity was then prepped with Betadine and draped in a sterile fashion. The extremity was exsanguinated the tourniquet was inflated to 250 mmHg. Longitudinal skin incision was made over the distal fibula. Proximally the superficial peroneal nerve was identified and retracted anteriorly. The fracture was then exposed. The area was irrigated with saline and any intervening hematoma was debrided. The fracture was then closed reduced there was evidence of comminution at the fracture site thus I do not feel interfragmentary fixation was feasible. Thus a Trudy distal tibial plate was secured proximally and distally maintaining reduction of the fracture including fibular height. Once this was confirmed with C-arm the fracture was first fixated distally with bicortical fixation. The fracture was then fixated proximally similarly with bicortical fixation. C-arm fluoroscopy was obtained once again confirming presybeterian of fibular height and appropriate placement of hardware with reduction of the fracture. Fixation was obtained distally with 3 additional locking screws. The previous cortex screw was switched out for the appropriate size locking screw. Proximally 3 additional cortex screws were obtained. No evidence of fracture diastases or instability. A cotton test was then performed demonstrating evidence of widening of the tibia-fibula clear space. Given the widening of the tibia-fibula clear space a fully threaded 3.5 mm cortex screw was placed obtaining 4 cortices of fixation. This adequately stabilized the tibia-fibula syndesmotic joint. We will continue to be mild widening of the medial joint space with stress secondary to deltoid insufficiency reduction was easily obtained with placement of the ankle at neutral position, thus decision was made to treat this nonoperatively in a postoperative cast. The wound was then copiously irrigated with normal saline. Subcutaneous tissues were closed with 2-0 Vicryl suture. Skin was closed with laney. There is no crepitus with ankle range of motion. Wound was dressed with Xeroform 4 x 4's ABD and patient was placed in a 3 sided plaster splint maintaining reduction of the ankle mortise. Tourniquet was deflated. Patient had good peripheral perfusion. Sponge counts, instrument counts, needle counts counts were correct. Patient was then awoken from anesthesia. Transferred from the operating room table to the operating room stretcher. There was no intraoperative complications patient tolerated procedure well stable to PACU. Postoperative plan: Patient will follow-up the office in 2 weeks will obtain radiographs at that time. She will be continued on p.o. antibiotics and discharged if pain controlled on 02/18/18. Patient will be continued on Xarelto for DVT prophylaxis.
[2018-02-17] MEDS: FENTANYL CITRATE INJ/PF 100 MCG/2 ML AMPUL ONE ×2 (19:20→19:25)
--- NOTE | 2018-02-17 19:25 | RADIOLOGY REPORT (SQ) ---
EXAM DESCRIPTION: NO CHG FLUORO; TIBIA FIBULA RIGHT COMPLETED DATE/TIME: 02/17/2018 7:16 pm REASON FOR STUDY: RT FIBULA ORIF COMPARISON: None. FLUOROSCOPY TIME: 1.0 minute. 6 images saved to PACS. TECHNIQUE: Intra-operative images acquired during surgical procedure to evaluate progress. NUMBER OF IMAGES: 6 images. LIMITATIONS: None. FINDINGS: Images of the ankle acquired during procedure. IMPRESSION: IMAGE(S) OBTAINED DURING PROCEDURE. COMMENT: Quality ID [id number]: Final reports for procedures using fluoroscopy that document radiation exp osure indices, or exposure time and number of fluorographic images (if radiation exposure indices are not available) Please consult full operative report of the attending physician for description of the procedure. TECHNICAL DOCUMENTATION: JOB ID: [id number] [employer]- All Rights Reserved Reading location - IP/workstation name: [email or web address]
--- NOTE | 2018-02-17 19:25 | RADIOLOGY REPORT (SQ) ---
EXAM DESCRIPTION: NO CHG FLUORO; TIBIA FIBULA RIGHT COMPLETED DATE/TIME: 02/17/2018 7:16 pm REASON FOR STUDY: RT FIBULA ORIF COMPARISON: None. FLUOROSCOPY TIME: 1.0 minute. 6 images saved to PACS. TECHNIQUE: Intra-operative images acquired during surgical procedure to evaluate progress. NUMBER OF IMAGES: 6 images. LIMITATIONS: None. FINDINGS: Images of the ankle acquired during procedure. IMPRESSION: IMAGE(S) OBTAINED DURING PROCEDURE. COMMENT: Quality ID [id number]: Final reports for procedures using fluoroscopy that document radiation exp osure indices, or exposure time and number of fluorographic images (if radiation exposure indices are not available) Please consult full operative report of the attending physician for description of the procedure. TECHNICAL DOCUMENTATION: JOB ID: [id number] [employer]- All Rights Reserved Reading location - IP/workstation name: [email or web address]
[2018-02-17] MEDS: SENNOSIDES/DOCUSATE 8.6-50 MG 1 EACH TABLET PO SCH (20:51)
--- NOTE | 2018-02-17 20:52 | PDOC PROGRESS REPORT ---
Subjective Progress Note for:: 02/17/18 Subjective:: Patient seen on morning rounds. She was noted to be waiting anxiously for the time of surgery. She denied any chest pain. Nuclear stress test and 2D echocardiogram results were again reviewed with the patient. Patient is maintaining sinus rhythm. Review of systems: Rest review of systems negative. Medications: Medications have been reviewed. Reason For Visit: RIGHT ANKLE OPEN FRACTURE, DISLOCATION Physical Exam Vital Signs: Temp Pulse Resp BP Pulse Ox 97.9 F 74 14 130/60 H 97 02/17/18 19:53 02/17/18 19:53 02/17/18 19:53 02/17/18 19:53 02/17/18 19:53 Intake & Output 02/16/18 02/17/18 02/18/18 06:59 06:59 06:59 Intake Total 3696 2840 6910 Output Total 700 550 900 Balance 2996 2290 6010 Exam: GENERAL: well-nourished and in no acute distress. Alert and oriented x3 HEAD: Atraumatic, normocephalic. EYES: Pupils equal round and reactive to light, extraocular movements intact, sclera anicteric, conjunctiva are normal. ENT: TMs normal, nares patent, oropharynx clear without exudates. Moist mucous membranes. No oral ulcerations or bleeding gums noted NECK: supple without lymphadenopathy. Trachea is central. No cervical or axillary lymphadenopathy noted. Carotids are 2+, JVD WNL LUNGS: Respiration seems nonlabored, no significant accessory muscle action noted. Breath sounds clear to auscultation bilaterally and equal noted. No wheezes rales or rhonchi noted. No significant dullness noted on percussion. CHEST: Palpation of the chest wall shows no significant chest wall tenderness. No other significant abnormalities noted. 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 ABDOMEN: Soft, no significant tenderness appreciated, normoactive bowel sounds. No guarding, no rebound. No rigidity noted . No masses appreciated. EXTREMITIES: Pedal pulses are 1-2+, no calf tenderness noted. No clubbing or cyanosis. negative pedal edema noted NEUROLOGICAL: Focused neurological exam showed no significant neurologic deficit. Normal speech, no focal weakness appreciated. PSYCH: Normal mood, normal affect. Judgment and insight within normal limits. SKIN: No significant ecchymosis, skin is noted to be warm. MUSCULOSKELETAL EXAM: No significant acute joint swelling noted. Right ankle in bandage and has orthopedic pins sticking out Results Laboratory Results: 02/17/18 05:42 02/17/18 05:42 02/17/18 02/17/18 05:42 05:42 WBC 7.5 RBC 5.13 Hgb 13.0 Hct 40.4 MCV 79 L MCH 25.4 L MCHC 32.2 RDW 19.5 H Plt Count 106 L Seg Neutrophils % 64.4 Lymphocytes % 13.8 Monocytes % 18.4 H Eosinophils % 2.9 Basophils % 0.5 Absolute Neutrophils 4.8 Absolute Lymphocytes 1.0 Absolute Monocytes 1.4 Absolute Eosinophils 0.2 Absolute Basophils 0.0 Sodium 135.6 L Potassium 3.9 Chloride 98 Carbon Dioxide 38 H Anion Gap 2 L BUN 7 Creatinine 0.60 Est GFR ( Amer) > 60 Est GFR (Non-Af Amer) > 60 Glucose 85 Calcium 8.4 Phosphorus 4.4 Magnesium 1.8 Total Bilirubin 0.6 AST 74 H ALT 35 Alkaline Phosphatase 93 Total Protein 4.7 L Albumin 2.8 L 02/14/18 06:36 Troponin I < 0.012 Impressions: Ankle X-Ray 02/14/18 00:21 IMPRESSION: Fracture dislocation of the right ankle. Chest X-Ray 02/14/18 00:35 IMPRESSION: No acute cardiopulmonary findings. Fluoroscopy 02/17/18 00:00 IMPRESSION: IMAGE(S) OBTAINED DURING PROCEDURE. Tibia/Fibula X-Ray 02/17/18 00:00 IMPRESSION: IMAGE(S) OBTAINED DURING PROCEDURE. Assessment & Plan - Diagnosis (1) Preoperative cardiovascular examination Is this a current diagnosis for this admission?: Yes (2) Chest discomfort Is this a current diagnosis for this admission?: Yes (3) COPD (chronic obstructive pulmonary disease) Qualifiers: COPD type: chronic bronchitis Is this a current diagnosis for this admission?: Yes (4) Pre-syncope Is this a current diagnosis for this admission?: Yes (5) Tobacco abuse Is this a current diagnosis for this admission?: Yes - Notes Notes: Patient stable to go for surgery. Patient had no complaints of chest pain. Recommend DVT prophylaxis, pulmonary toilet, observe for nicotine withdrawal. Patient to have a postop EKG 1 day later. Chest pain: Patient claims chest pain is resolved without any recurrence. This was evaluated with a nuclear stress test. Nuclear stress test was negative for any significant areas of ischemia or any significant areas of scar. The nuclear stress test is felt to be relatively low risk. Patient informed that occasionally single-vessel disease and balanced ischemia could be missed. Patient advised aggressive risk factor modification and medical therapy. Patient informed that further evaluation may become necessary if symptoms worsens or there is a development of new symptoms indicative of angina or angina equivalent symptom. Preop cardiovascular examination: Based on nuclear stress test, 2D echocardiogram results, patient cleared for surgery with average risk for her age. COPD: Recommend pulmonary toilet, incentive spirometry. Presyncope: Cause not., So far no significant cardiac dysrhythmia noted. Patient may benefit from prolonged monitoring as an outpatient via a event monitor. Tobacco abuse: Patient has been advised to quit smoking. - Time Time with patient: 15-25 minutes - More than 50% of the time spent coordinating care, discussing management plans with involved caregivers. Management plans discussed with involved personnels. Medical decision making was of moderate to high complexity, patient's has multiple comorbidities. Medications reviewed and adjusted accordingly: Yes
[2018-02-17] MEDS: ATORVASTATIN CALCIUM 40 MG TABLET PO SCH (20:57)
[2018-02-17] MEDS: BUDESONIDE/FORMOTEROL 160-4.5 MCG 60 PUFF/6 GM MDI IH SCH (20:59)
[2018-02-18] MEDS: FENTANYL CITRATE INJ/PF 100 MCG/2 ML AMPUL IV PRN ×4 (00:35→15:16)
[2018-02-18] MEDS: OXYCODONE HCL IR 5 MG TABLET PO PRN ×5 (03:44→21:53)
[2018-02-18] MEDS: CEFAZOLIN SODIUM 2 GM in NORMAL SALINE 100 ML IV SCH ×3 (05:08→17:03)
[2018-02-18] MEDS: LEVALBUTEROL HCL NEB 0.63 MG/3 ML AMPUL NEB SCH ×2 (07:39→16:15)
[2018-02-18] MEDS: NICOTINE 21 MG/24 HR PATCH.TD24 TD SCH (09:38)
[2018-02-18] MEDS: DOCUSATE SODIUM 100 MG CAPSULE PO SCH ×2 (09:38→17:03)
[2018-02-18] MEDS: BUDESONIDE/FORMOTEROL 160-4.5 MCG 60 PUFF/6 GM MDI IH SCH ×2 (09:38→21:53)
[2018-02-18] MEDS: METOPROLOL SUCCINATE 25 MG TAB.SR.24H PO SCH ×2 (09:38→21:53)
[2018-02-18] MEDS: PREGABALIN 75 MG CAPSULE PO SCH ×2 (09:38→21:53)
[2018-02-18] MEDS: TIOTROPIUM BROMIDE DPI 5 CAP/KIT (18 MCG/CAP) IH SCH (09:38)
--- NOTE | 2018-02-18 09:40 | EKG REPORT ---
SEVERITY:- NORMAL ECG - SINUS RHYTHM : Confirmed by: Shashi Ramirez 18-Feb-2018 09:39:08
[2018-02-18] MEDS: RINGERS SOLUTION,LACTATED 1,000 ML IV PRN (09:46)
[2018-02-18] MEDS: RIVAROXABAN 10 MG TABLET PO SCH (16:54)
--- NOTE | 2018-02-18 17:44 | PDOC PROGRESS REPORT ---
Subjective Progress Note for:: 02/18/18 Subjective:: complaining of pain. still required IV narcotics for breathrough pain Reason For Visit: RIGHT ANKLE OPEN FRACTURE, DISLOCATION Physical Exam Vital Signs: Temp Pulse Resp BP Pulse Ox 36.6 C 73 17 111/51 L 95 02/18/18 16:00 02/18/18 16:15 02/18/18 16:15 02/18/18 16:00 02/18/18 16:15 Intake & Output 02/17/18 02/18/18 02/19/18 06:59 06:59 06:59 Intake Total 2840 8760 Output Total 550 900 Balance 2290 7860 Weight 81 kg Adult Front & Back Image: 1 - splint dry clean and intact. Swelling of toes, NVI distally. Results Laboratory Results: 02/17/18 05:42 02/17/18 05:42 02/14/18 06:36 Troponin I < 0.012 Impressions: Ankle X-Ray 02/14/18 00:21 IMPRESSION: Fracture dislocation of the right ankle. Chest X-Ray 02/14/18 00:35 IMPRESSION: No acute cardiopulmonary findings. Fluoroscopy 02/17/18 00:00 IMPRESSION: IMAGE(S) OBTAINED DURING PROCEDURE. Tibia/Fibula X-Ray 02/17/18 00:00 IMPRESSION: IMAGE(S) OBTAINED DURING PROCEDURE. Assessment & Plan - Plan Summary Plan Summary: Patient s/p removal of ex fix and ORIF lateral malleolus. COntinue PT NWB WIll attempt to avoid IV narcotics and plan D/C tomorrow
[2018-02-18] MEDS: SENNOSIDES/DOCUSATE 8.6-50 MG 1 EACH TABLET PO SCH (21:48)
[2018-02-18] MEDS: ATORVASTATIN CALCIUM 40 MG TABLET PO SCH (21:53)
[2018-02-19] MEDS: LEVALBUTEROL HCL NEB 0.63 MG/3 ML AMPUL NEB SCH ×3 (00:08→16:30)
[2018-02-19] MEDS: OXYCODONE HCL IR 5 MG TABLET PO PRN ×3 (03:45→14:51)
[2018-02-19 04:58] LABS: HEMOGLOBIN 12.8 g/dL (12.0-15.5); MEAN CORPUSCULAR HEMOGLOBIN 25.4 pg (27.0-33.4); MEAN CORPUSCULAR HGB CONC 32.1 g/dL (32.0-36.0); MEAN CORPUSCULAR VOLUME 79 fl (80-97); PLATELET COUNT 132 10^3/uL (150-450); RED BLOOD COUNT 5.06 10^6/uL (3.72-5.28); RED CELL DISTRIBUTION WIDTH 19.5 % (11.5-14.0); WHITE BLOOD COUNT 11.1 10^3/uL (4.0-10.5)
[2018-02-19] MEDS: NICOTINE 21 MG/24 HR PATCH.TD24 TD SCH (10:18)
[2018-02-19] MEDS: METOPROLOL SUCCINATE 25 MG TAB.SR.24H PO SCH (10:18)
[2018-02-19] MEDS: DOCUSATE SODIUM 100 MG CAPSULE PO SCH (10:18)
[2018-02-19] MEDS: PREGABALIN 75 MG CAPSULE PO SCH (10:18)
[2018-02-19] MEDS: BUDESONIDE/FORMOTEROL 160-4.5 MCG 60 PUFF/6 GM MDI IH SCH (10:18)
--- NOTE | 2018-02-19 12:14 | Progress Note ---
Provider Note Provider Note: Patient says that her pain is controlled. She is expecting to be discharged today. Signing off.
[2018-02-19] MEDS: TIOTROPIUM BROMIDE DPI 5 CAP/KIT (18 MCG/CAP) IH SCH (14:51)
[2018-02-19 16:29] VITALS: BP 125/56
--- NOTE | 2018-02-19 19:35 | PDOC PROGRESS REPORT ---
Subjective Progress Note for:: 02/18/18 Subjective:: Patient seen on morning rounds. Postop day 1. She denied any chest pain. Nuclear stress test and 2D echocardiogram results were again reviewed with the patient. EKG reviewed Patient is maintaining sinus rhythm. Review of systems: Rest review of systems negative. Medications: Medications have been reviewed. Reason For Visit: RIGHT ANKLE OPEN FRACTURE, DISLOCATION Physical Exam Vital Signs: Temp Pulse Resp BP Pulse Ox 97.8 F 73 17 111/51 L 95 02/18/18 16:00 02/18/18 16:15 02/18/18 16:15 02/18/18 16:00 02/18/18 16:15 Intake & Output 02/17/18 02/18/18 02/19/18 06:59 06:59 06:59 Intake Total 2840 8760 1730 Output Total 643 078 5873 Balance 2290 7860 -70 Weight 81 kg Exam: GENERAL: well-nourished and in no acute distress. Alert and oriented x3 HEAD: Atraumatic, normocephalic. EYES: Pupils equal round and reactive to light, extraocular movements intact, sclera anicteric, conjunctiva are normal. ENT: TMs normal, nares patent, oropharynx clear without exudates. Moist mucous membranes. No oral ulcerations or bleeding gums noted NECK: supple without lymphadenopathy. Trachea is central. No cervical or axillary lymphadenopathy noted. Carotids are 2+, JVD WNL LUNGS: Respiration seems nonlabored, no significant accessory muscle action noted. Breath sounds clear to auscultation bilaterally and equal noted. No wheezes rales or rhonchi noted. No significant dullness noted on percussion. CHEST: Palpation of the chest wall shows no significant chest wall tenderness. No other significant abnormalities noted. 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 ABDOMEN: Soft, no significant tenderness appreciated, normoactive bowel sounds. No guarding, no rebound. No rigidity noted . No masses appreciated. EXTREMITIES: Pedal pulses are 1-2+, no calf tenderness noted. No clubbing or cyanosis. negative pedal edema noted NEUROLOGICAL: Focused neurological exam showed no significant neurologic deficit. Normal speech, no focal weakness appreciated. PSYCH: Normal mood, normal affect. Judgment and insight within normal limits. SKIN: No significant ecchymosis, skin is noted to be warm. MUSCULOSKELETAL EXAM: No significant acute joint swelling noted. Right foot and leg in soft cast, status post surgery. Results Laboratory Results: 02/17/18 05:42 02/17/18 05:42 02/14/18 06:36 Troponin I < 0.012 Impressions: Ankle X-Ray 02/14/18 00:21 IMPRESSION: Fracture dislocation of the right ankle. Chest X-Ray 02/14/18 00:35 IMPRESSION: No acute cardiopulmonary findings. Fluoroscopy 02/17/18 00:00 IMPRESSION: IMAGE(S) OBTAINED DURING PROCEDURE. Tibia/Fibula X-Ray 02/17/18 00:00 IMPRESSION: IMAGE(S) OBTAINED DURING PROCEDURE. Assessment & Plan - Diagnosis (1) Preoperative cardiovascular examination Is this a current diagnosis for this admission?: Yes (2) Chest discomfort Is this a current diagnosis for this admission?: Yes (3) COPD (chronic obstructive pulmonary disease) Qualifiers: COPD type: chronic bronchitis Is this a current diagnosis for this admission?: Yes (4) Pre-syncope Is this a current diagnosis for this admission?: Yes (5) Tobacco abuse Is this a current diagnosis for this admission?: Yes - Notes Notes: Patient is postop day 1. Patient is doing fine from a cardiovascular standpoint. Twelve-lead EKG obtained shows no acute ST-T wave changes and normal sinus rhythm. Telemetry strips showed no significant cardiac dysrhythmia. Chest pain: Patient claims chest pain is resolved without any recurrence. This was evaluated with a nuclear stress test. Nuclear stress test was negative for any significant areas of ischemia or any significant areas of scar. The nuclear stress test is felt to be relatively low risk. Patient informed that occasionally single-vessel disease and balanced ischemia could be missed. Patient advised aggressive risk factor modification and medical therapy. Patient informed that further evaluation may become necessary if symptoms worsens or there is a development of new symptoms indicative of angina or angina equivalent symptom. Preop cardiovascular examination: Based on nuclear stress test, 2D echocardiogram results, patient cleared for surgery with average risk for her age. COPD: Recommend pulmonary toilet, incentive spirometry. Presyncope: Cause not found, So far no significant cardiac dysrhythmia noted. Patient may benefit from prolonged monitoring as an outpatient via a event monitor. Tobacco abuse: Patient has been advised to quit smoking. Will sign off. Please reconsult if needed. Have given my card to the patient to schedule a follow-up appointment if she wishes. - Time Time with patient: 15-25 minutes - More than 50% of the time spent coordinating care, discussing management plans with involved caregivers. Management plans discussed with involved personnels. Medical decision making was of moderate to high complexity, patient's has multiple comorbidities. Medications reviewed and adjusted accordingly: Yes
--- NOTE | 2018-02-24 11:14 | PDOC DISCHARGE SUMMARY ---
General - Admit/Disc Date/PCP Admission Date/Primary Care Provider: 02/14/18 02:13 Discharge Date: 02/19/18 - Discharge Diagnosis (1) Open right ankle fracture Is this a current diagnosis for this admission?: Yes - Additional Information Resuscitation Status: Full Code Discharge Diet: As Tolerated Discharge Activity: No Lifting Over 10 Pounds, No Lifting/Push/Pulling Prescriptions: Cephalexin Monohydrate [Keflex 500 mg Capsule] 500 mg PO QID #28 capsule Oxycodone HCl/Acetaminophen [Percocet 5-325 mg Tablet] 1 - 2 tab PO ASDIR PRN # 50 tablet PRN Reason: Rivaroxaban [Xarelto 10 mg Tablet] 10 mg PO DAILY PRN #18 tablet PRN Reason: Home Medications: Albuterol Sulfate [Proair HFA] 2 puff IH QID 02/14/18 Alprazolam [Xanax 0.5 mg Tablet] 0.5 mg PO BIDP PRN 02/14/18 Diclofenac Sodium [Voltaren] 1 applic TOP QID 02/14/18 Esomeprazole Magnesium [Nexium] 40 mg PO BID 02/14/18 Estradiol [Estrace] 1 mg PO DAILY 02/14/18 Hydrocodone Bit/Acetaminophen [Hydrocodon-Acetaminophn 10-325] 1 tab PO BIDP PRN 02/14/18 Ondansetron HCl [Zofran 8 mg Tablet] 8 mg PO DAILYP PRN 02/14/18 Oxybutynin Chloride [Oxybutynin Chloride ER] 5 mg PO DAILY 02/14/18 Pregabalin [Lyrica] 300 mg PO Q12 02/14/18 Promethazine HCl [Phenergan 25 mg Tablet] 25 mg PO Q6HP PRN 02/14/18 Simvastatin [Zocor 40 mg Tablet] 40 mg PO QHS 02/14/18 Tiotropium [place] [Spiriva Handihaler 18 mcg/dose (30 Dose)] 1 cap IH DAILY Zafirlukast [Accolate 20 mg Tablet] 20 mg PO Q12 02/14/18 Cephalexin Monohydrate [Keflex 500 mg Capsule] 500 mg PO QID #28 capsule Oxycodone HCl/Acetaminophen [Percocet 5-325 mg Tablet] 1 - 2 tab PO ASDIR PRN # 50 tablet 02/17/18 Rivaroxaban [Xarelto 10 mg Tablet] 10 mg PO DAILY PRN #18 tablet 02/17/18 History of Present Illness Patient complains of: Right ankle injury History of Present Illness: RACHEL SALES is a 72 year old female who is from out of town and was visiting. According to the patient she has long-standing history of COPD and with standing and ultimately became lightheaded, fell and blacked out. Patient was brought to the emergency room via EMS was found to have open fracture dislocation of her ankle. Patient denies gross contamination to the wound and was originally wearing a sock. Does have numbness and tingling along the toes. States pain is worse with any motion. She has received antibiotics in the emergency room. Hospital Course Hospital Course: On 02/14/18 patient sustained a fall onto her right ankle resulting in an open fracture dislocation of her ankle. Patient was given Ancef and gentamicin in the emergency room prophylactically given her open fracture. She then underwent emergent operative intervention which included external fixation of her right ankle with closure of the open wound. Postoperatively she was started on Ancef IV for bacterial prophylaxis. Given patient's comorbidities a medical and cardiology workup was performed including stress test which demonstrated no evidence of ischemia. Patient was deemed medically stable for definitive operative treatment. Once patient swelling notably improved decision was made to proceed with definitive fixation of her distal fibula. On 02/17/18 patient underwent open reduction internal fixation of her right distal fibula fracture with syndesmotic fixation patient tolerated procedure well. It was placed in a splint postoperatively. On 02/18/2018 patient was started on physical therapy maintaining nonweightbearing in her right lower extremity but continued to have considerable pain postoperatively. Over the next 24 hours patient's pain notably improved and on 02/19/18 patient was mobilizing well and her pain notably improved. Patient receives Xarelto throughout her hospital course for DVT prophylaxis. Physical Exam Vital Signs: Temp Pulse Resp BP Pulse Ox 98.1 F 85 16 111/51 L 93 02/19/18 16:21 02/19/18 16:21 02/19/18 16:21 02/19/18 16:21 02/19/18 16:21 Results Laboratory Results: 02/19/18 03:38 02/17/18 05:42 02/14/18 06:36 Troponin I < 0.012 Impressions: Ankle X-Ray 03/31/18 00:21 IMPRESSION: Fracture dislocation of the right ankle. Chest X-Ray 02/14/18 00:35 IMPRESSION: No acute cardiopulmonary findings. Fluoroscopy 02/17/18 00:00 IMPRESSION: IMAGE(S) OBTAINED DURING PROCEDURE. Tibia/Fibula X-Ray 02/17/18 00:00 IMPRESSION: IMAGE(S) OBTAINED DURING PROCEDURE. Qualifiers - * PATEINT BEING DISCHARGED WITH ANY OF THE FOLLOWING DIAGNOSIS?: No VTE patient discharged on overlapping Therapy?: Yes Stroke Pt being discharged on Anti-thrombolytic therapy?: No Reason(s) for not prescribing Anti-thrombolytic therapy:: Not indicated Plan Discharge Plan: Patient was given prescriptions for clindamycin, Percocet and Xarelto for DVT prophylaxis. She was to maintain nonweightbearing in her right lower extremity and continue aggressive elevation and ice. If patient notices increasing pain, redness, drainage, temperature greater than 101.5 or any questions or concerns she should contact our office. On 02/19/18 patient was deemed orthopedically medically stable for discharge to home and will follow-up in the office 10-14 days.
== END 2018-02-19 17:50 | disposition home or self-care (01) | DRG 494 ==
LOC: ER 00:19 → EH 02:13 → 5 05:40
PROVIDERS: ADMIT Orthopaedic Surgery; ATTEND Orthopaedic Surgery
PROC: 0QBJ0ZZ Excision of Right Fibula, Open Approach (ICD-10-PCS; 2018-02-14)
PROC: 0QHJ35Z Insertion of External Fixation Device into Right Fibula, Percutaneous Approach (ICD-10-PCS; 2018-02-14)
PROC: 0QPJ35Z Removal of External Fixation Device from Right Fibula, Percutaneous Approach (ICD-10-PCS; 2018-02-17)
PROC: 0QSJ34Z Reposition Right Fibula with Internal Fixation Device, Percutaneous Approach (ICD-10-PCS; principal; 2018-02-17 17:00)
DX: S82.891C Other fracture of right lower leg, initial encounter for open fracture type IIIA, IIIB, or IIIC (principal); W01.0XXA Fall on same level from slipping, tripping and stumbling without subsequent striking against object, initial encounter; E78.00 Pure hypercholesterolemia, unspecified; M24.671 Ankylosis, right ankle; K59.00 Constipation, unspecified; F17.210 Nicotine dependence, cigarettes, uncomplicated; Z99.81 Dependence on supplemental oxygen; Z90.49 Acquired absence of other specified parts of digestive tract; Z90.710 Acquired absence of both cervix and uterus; Z79.899 Other long term (current) drug therapy; Z88.6 Allergy status to analgesic agent; Z82.49 Family history of ischemic heart disease and other diseases of the circulatory system
CPT/HCPCS: 01480; 36415; 71045; 78452; 80048; 80053; 82550; 82553; 83735; 84100; 84484; 85025; 85027; 85610; 85730; 90471; 90715; 93005; 93010; 93017; 93306; 94640; 96365; 96368; 96375; 99285; A9500; C1713; C1769; G8978-GP; G8979-GP; J0131; J0280; J0690; J1100; J1580; J2250; J2405; J2704; J2785; J3010; J3490; J7120; J7614; Q9969